=== PATIENT | female | born 1980 | race African-American/Black ===

== ENCOUNTER 2016-10-10 04:29 | Inpatient (IN) ==
[2016-10-10] MEDS ORDERED: hydrALAZINE 20 MG/1 ML VIAL ONE (04:44)
[2016-10-10] MEDS ORDERED: NITROGLYCERIN SL 0.4 MG TABLET SL STA (04:52)
[2016-10-10] MEDS ORDERED: hydrALAZINE 20 MG/1 ML VIAL IV STA ×2 (04:52→05:36)
[2016-10-10 04:58] LABS: Basophils % 0.4 % (0.0-0.8); Eosinophils # 0.2 10*3/uL (0.0-0.87); Hematocrit 28.4 VOL% (35.7-47.0); Hemoglobin 8.7 GM/DL (12.0-16.0); Immature Granulocytes % 0.4 %; Immature Granulocytes Absolute 0.03 #; Lymphocytes # 2.3 10*3/uL (1.4-4.0); Lymphocytes % 29.7 % (21.3-54.2); Mean Corpuscular HGB Conc 30.6 GM/DL (32-36); Mean Corpuscular Hemoglobin 23 PG (27-34); Mean Corpuscular Volume 74.9 FL (87-102); Monocytes # 0.7 10*3/uL (0.11-0.8); Monocytes % 8.9 % (1.7-12.7); Neutrophils # 4.5 10*3/uL (1.4-7.4); Neutrophils % 58.6 % (38.7-73.9); Platelet Count 319 10*3/uL (130-400); Red Blood Count 3.79 10*6/uL (3.8-5.5); Red Cell Distribution Width 17.2 % (9.3-17.3); White Blood Count 7.6 10*3/uL (4.5-13.71)
[2016-10-10] MEDS ORDERED: ONDANSETRON 4 MG/2 ML VIAL ONE (05:06)
[2016-10-10] MEDS ORDERED: MORPHINE 2 MG/1 ML SYRINGE ONE (05:07)
[2016-10-10] MEDS ORDERED: NITROGLYCERIN SL 0.4 MG TABLET SL ONE (05:07)
[2016-10-10 05:10] LABS: PT Patient Result 11.1 SECS; Partial Thromboplastin Time 27.8 SECS (0-40)
[2016-10-10] MEDS ORDERED: ONDANSETRON 4 MG/2 ML VIAL IV STA (05:15)
[2016-10-10] MEDS ORDERED: MORPHINE 2 MG/1 ML SYRINGE IV STA (05:15)
[2016-10-10 05:21] LABS: Albumin 3.1 G/DL (3.4-5.0); Bilirubin,Total 0.4 MG/DL (0.2-1.0); Calcium 8.4 MG/DL (8.5-10.1); Potassium 3.6 MMOL/L (3.5-5.1); Total Protein 6.1 G/DL (6.4-8.3)
--- NOTE | 2016-10-10 05:36 | Emergency Department Note ---
ITyrell Brooke, am scribing for, and in the presence of, Amanda Horn DO 04:56 . IKory Debra, DO, personally performed the services described in this documentation, ascribed by Mari Santillan in my presence, and it is both accurate and complete . Arrival - Arrival ED Nursing Triage Note: REPORTS CHEST PAIN AND SOB ON EXERTION INTERMITTENT FOR APPROX. 3 MONTHS BUT WORSE THIS MORNING. Mode of Arrival: Ambulatory Limitations: No Limitations Source: Patient, RN Notes Reviewed - History of Present Illness Onset (ago): month(s) (3) Date of Last Menstrual Period: 10/03/16 <Amanda Horn - Last Filed: 10/10/16 05:36> <Gio Powers - Last Filed: 10/10/16 07:06> - Arrival Chief Complaint: Chest Pain Stated Complaint: chest pain, tightness in chest, SOB Time Seen by Provider: 10/10/16 04:43 - History of Present Illness HPI Narrative: Patient is a 35 year old female who presents to the ED with c/o chest pain and SOB. Patient says her chest is tender to touch. She says she has been having problems with the SOB since June. She says she saw a doctor in [place] and was told she had some fluid on her lungs. She stayed over night and says her blood pressure was elevated, so they got that regulated and then discharged her. Patient says she was prescribed some blood pressure medications. Patient's blood pressure upon exam was 232/162. Patient says she ran out of her blood pressure medication two weeks ago. She says she has had a CVA, in the past, but says it was mild and did not have any weakness afterwards. Patient has no heart problems, that she knows of. Patient says she developed preeclampsia, in March, and had to deliver her child early. She denies having any abdominal pain or headache. Patient has PMHx of HTN, depression, CVA, obstructive sleep apnea, hemmorrhoids, and GERD. (Mari Santillan) Patient is a 35 year old female who presents to the ED with c/o chest pain and SOB. Patient says her chest is tender to touch. She says she has been having problems with the SOB since June. She says she saw a doctor in [place] and was told she had some fluid on her lungs. She stayed over night and says her blood pressure was elevated, so they got that regulated and then discharged her. Patient says she was prescribed some blood pressure medications. Patient's blood pressure upon exam was 232/162. Patient says she ran out of her blood pressure medication two weeks ago. She says she has had a CVA, in the past, but says it was mild and did not have any weakness afterwards. Patient has no heart problems, that she knows of. Patient says she developed preeclampsia, in March, and had to deliver her child early. She denies having any abdominal pain or headache. Patient has PMHx of HTN, depression, CVA, obstructive sleep apnea, hemmorrhoids, and GERD. (Amanda Horn) Allergies/Adverse Reactions: Allergies Allergy/AdvReac Type Severity Reaction Status Date / Time No Known Allergies Allergy Unverified 01/04/15 20:18 Home Medications: Home Medications Medication Instructions Recorded Confirmed Type Carvedilol [Coreg] 12.5 mg PO BID #60 tablet 01/10/15 Rx Ondansetron Tab [Zofran Tab] 4 mg PO Q6H PRN #20 tablet 01/10/15 Rx Pantoprazole Tab [Protonix Tab] 40 mg PO DAILY #30 tablet 01/10/15 Rx amLODIPine [Norvasc] 10 mg PO DAILY #30 tablet 01/10/15 Rx cloNIDine TAB [Catapres Tab] 0.1 mg PO TID #100 tablet 01/10/15 Rx hydrALAZINE TAB [Apresoline Tab] 50 mg PO BID #60 tablet 01/10/15 Rx Review of System - Review of System 12 point system: reviewed and no additional remarkable complaints except as stated - Review of System Constitutional: Absent: fever Respiratory: Present: other (SOB). Absent: respiratory distress Cardiovascular: Present: chest pain, other (elevated blood pressure) Gastrointestinal: Absent: abdominal pain Skin: Absent: rash Neurological: Absent: headache <Amanda Horn - Last Filed: 10/10/16 05:36> Medical,Surgical,& Family Hx - Medical History Cardio: History of: Hypertension Psychological: History of: Depression Neurology: History of: Cerebrovascular Accident No history of: Brain Aneurysm, Cerebral Hemorrhage, Cerebral Palsy, Dementia , Migraine, Multiple Sclerosis, Parkinson's Disease, Peripheral Neuropathy, Seizures, TIA, Vertigo, Neurologocal Cancer Respiratory: History of: Obstructive Sleep Apnea ("My mother says I need a sleep study done.") Genitourinary: History of: Problems (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 for which she has had no follow-up) Gastrointestinal: History of: GERD, Hemorrhoids Musculoskeletal: No history of: Amputation Reproductive: History of: Endometriosis, Ectopic (2000) - Surgical History Cardiac Surgeries: Patient Denies: Cardiac Catheterization Thoracic Surgeries: Patient denies;: Lobectomy Neurologic Surgeries: Patient denies: Brain Aneurysm, Cerebral Hemorrhage, Neurologic Surgery HEENT Surgeries: Patient denies: Tonsilectomy & Adenoidectomy Abdominal Surgeries: Patient denies: Abdominal Surgery Reproductive Surgeries: Surgical HX of;: Gynecologic Surgery Comment Only: Tubal Ligation (2000 had one fallopian tube removed after ectopic ) - Family History Family History: Reports;: Family Cancer (aunt, greataunt), Family Diabetes ( mother, grandmother, aunt, uncle), Family Hypertension ("everyone in my family") Denies;: Family Anesthesia Reaction - Social History Smoking Status: Current every day smoker Frequency of Alcohol Use: None Type of Drug Use: None <Amanda Horn - Last Filed: 10/10/16 05:36> Exam - General General appearance: alert, in no apparent distress - Head Head exam: Present: atraumatic, normocephalic - Eye Eye exam: Present: normal appearance, PERRL, EOMI - ENT ENT exam: Present: normal exam - Neck Neck exam: Present: normal inspection - Chest Chest inspection: Present: normal inspection, symmetric chest wall rise - Respiratory Respiratory exam: Present: normal lung sounds bilaterally - Cardiovascular Cardiovascular exam: Present: regular rate, normal rhythm, normal heart sounds - Abdominal Exam Abdominal exam: Present: soft, tenderness (epigastric to palpation). Absent: distention - Extremities Exam Extremities exam: Present: normal inspection - Back Exam Back exam: Present: normal inspection - Neurological Exam Neurological exam: Present: alert, oriented X3 - Psychiatric Psychiatric exam: Present: normal affect, normal mood - Skin Skin exam: Present: warm, dry, intact, normal color <Amanda Horn - Last Filed: 10/10/16 05:36> Vital Signs: Vital Signs Temperature 98.9 F 10/10/16 04:33 Pulse Rate 97 H 01/15/17 04:33 Respiratory Rate 19 10/10/16 04:59 Blood Pressure 228/151 10/10/16 04:33 O2 Sat by Pulse Oximetry 97 10/10/16 04:33 (Mari Santillan) (Amanda Horn) (Gio Powers) Course <Amanda Horn - Last Filed: 10/10/16 05:36> - Consultations Time: 07:06 <Gio Powers - Last Filed: 10/10/16 07:06> - Consultations Consultation #1: Dr. Fortino Mcgraw will evaluate and admit the patient. (Gio Powers) Results - Labs CBC & BMP: 10/10/16 04:47 Lab Results: I have reviewed the patients labs <Amanda Horn - Last Filed: 10/10/16 05:36> - Labs CBC & BMP: 10/10/16 04:47 10/10/16 04:47 Lab Results: I have reviewed the patients labs - EKG EKG results: interpreted by BRONWYN CHONG, sinus rhythm <Gio Powers - Last Filed: 10/10/16 07:06> - Labs Labs: Laboratory Tests 10/10/16 04:47 RBC 3.79 L Hgb 8.7 L Hct 28.4 L MCV 74.9 L MCH 23 L MCHC 30.6 L (Mari Santillan) Laboratory Tests 10/10/16 04:47 RBC 3.79 L Hgb 8.7 L Hct 28.4 L MCV 74.9 L MCH 23 L MCHC 30.6 L (Amanda Horn) Lab Results WBC 7.6 10*3/uL (4.5-13.71) 10/10/16 04:47 RBC 3.79 10*6/uL (3.8-5.5) L 10/10/16 04:47 Hgb 8.7 GM/DL (12.0-16.0) L 10/10/16 04:47 Hct 28.4 VOL% (35.7-47.0) L 10/10/16 04:47 MCV 74.9 FL (87-102) L 10/10/16 04:47 MCH 23 PG (27-34) L 10/10/16 04:47 MCHC 30.6 GM/DL (32-36) L 10/10/16 04:47 RDW 17.2 % (9.3-17.3) 10/10/16 04:47 Plt Count 319 10*3/uL (130-400) 10/10/16 04:47 MPV 10.0 FL (9.6-12.0) 10/10/16 04:47 Neut % (Auto) 58.6 % (38.7-73.9) 10/10/16 04:47 Lymph % (Auto) 29.7 % (21.3-54.2) 10/10/16 04:47 Cook % (Auto) 8.9 % (1.7-12.7) 10/10/16 04:47 Eos % (Auto) 2.0 % (0.00-10.9) 10/10/16 04:47 Baso % (Auto) 0.4 % (0.0-0.8) 10/10/16 04:47 Neut # (Auto) 4.5 10*3/uL (1.4-7.4) 10/10/16 04:47 Lymph # (Auto) 2.3 10*3/uL (1.4-4.0) 10/10/16 04:47 Cook # (Auto) 0.7 10*3/uL (0.11-0.8) 10/10/16 04:47 Eos # (Auto) 0.2 10*3/uL (0.0-0.87) 10/10/16 04:47 Baso # (Auto) 0.0 10*3/uL (0.0-0.2) 10/10/16 04:47 Immature Gran % 0.4 % 10/10/16 04:47 Nucleated RBC % 0.0 /100WBC 10/10/16 04:47 Immature Gran # 0.03 # 10/10/16 04:47 Nucleated RBCs # 0.00 10*3/uL 10/10/16 04:47 INR 1.0 10/10/16 04:47 PT Patient/Control Mix 11.1 SECS 10/10/16 04:47 Circ Anticoag PTT 27.8 SECS (0-40) 10/10/16 04:47 Sodium 143 MMOL/L (136-145) 10/10/16 04:47 Potassium 3.6 MMOL/L (3.5-5.1) 10/10/16 04:47 Chloride 108 MMOL/L (98-107) H 10/10/16 04:47 Carbon Dioxide 26 MMOL/L (21-32) 10/10/16 04:47 Anion Gap 12.6 MMOL/L (5.0-15.0) 10/10/16 04:47 BUN 17 MG/DL (7-18) 10/10/16 04:47 Creatinine 1.40 MG/DL (0.55-1.02) H 10/10/16 04:47 GFR Calculation 51 ML/MIN 10/10/16 04:47 BUN/Creatinine Ratio 12.00 RATIO (6.00-20.00) 10/10/16 04:47 Glucose 92 MG/DL (74-106) 10/10/16 04:47 Calculated Osmolality 286.0 MOS/KG (273-304) 10/10/16 04:47 Calcium 8.4 MG/DL (8.5-10.1) L 10/10/16 04:47 Total Bilirubin 0.40 MG/DL (0.2-1.0) 10/10/16 04:47 AST 26 U/L (0-37) 10/10/16 04:47 ALT 27 U/L (13-56) 10/10/16 04:47 Alkaline Phosphatase 95 U/L (45-117) 10/10/16 04:47 Total Creatine Kinase 192 U/L (26-192) 10/10/16 04:47 CK-MB (CK-2) 2.6 U/L (0.5-3.6) 10/10/16 04:47 Troponin I 0.031 NG/ML (0.00-0.045) 10/10/16 04:47 B-Natriuretic Peptide 2249 PG/ML (2-100) H 10/10/16 04:47 Total Protein 6.1 G/DL (6.4-8.3) L 10/10/16 04:47 Albumin 3.1 G/DL (3.4-5.0) L 10/10/16 04:47 Globulin 3.0 G/DL (2.3-3.5) 10/10/16 04:47 Albumin/Globulin Ratio 1.0 RATIO (1.1-2.2) L 10/10/16 04:47 Urine Color Straw (Yellow) 10/10/16 04:47 Urine Appearance Clear (Clear) 10/10/16 04:47 Urine pH 7.0 (4.5-8.0) 10/10/16 04:47 Ur Specific [place] 1.008 (1.001-1.035) 10/10/16 04:47 Urine Protein 30 MG/DL 10/10/16 04:47 Urine Glucose (UA) Negative mg/dL (Negative) 10/10/16 04:47 Urine Ketones Negative mg/dL (Negative) 10/10/16 04:47 Urine Blood Negative mg/dL (Negative) 10/10/16 04:47 Urine Nitrate Negative (Negative) 10/10/16 04:47 Urine Bilirubin Negative mg/dL (Negative) 10/10/16 04:47 Urine Urobilinogen < 2.0 EU/DL (0.2-1.0) H 10/10/16 04:47 Urine Leukocytes Trace Mehreen/ul (Negative) 10/10/16 04:47 Urine RBC 1 /HPF (0-4) 10/10/16 04:47 Urine WBC 2 /HPF (0-6) 10/10/16 04:47 Ur Squamous Epith Cells Occasional /HPF (0-10) 10/10/16 04:47 Urine Bacteria Occasional /HPF (Few) 10/10/16 04:47 Ur Culture Indicated? Not indicated 10/10/16 04:47 Urine Opiates Screen Positive (Negative) H 10/10/16 04:47 Ur Barbiturates Screen Negative (Negative) 10/10/16 04:47 Ur Phencyclidine Scrn Negative (Negative) 10/10/16 04:47 U Amphetamine/Methamph Negative (Negative) 10/10/16 04:47 U Benzodiazepines Scrn Negative (Negative) 10/10/16 04:47 U Cocaine Metab Screen Negative (Negative) 10/10/16 04:47 U Cannabinoids Screen Positive (Negative) H 10/10/16 04:47 (Gio Powers) Disposition <Amanda Horn - Last Filed: 10/10/16 05:36> Case discussed with: patient Time of Disposition: 07:06 <Gio Powers - Last Filed: 01/15/17 07:06> Clinical Impression: Uncontrolled hypertension, Renal insufficiency, Shortness of breath Disposition: Still a Patient Condition: Stable
[2016-10-10] MEDS ORDERED: cloNIDine 0.1 MG TABLET ONE ×2 (05:41→05:42)
[2016-10-10] MEDS: cloNIDine 0.1 MG TABLET PO STA ×2 (05:42→05:52)
[2016-10-10] MEDS ORDERED: LABETALOL 20 MG/4 ML SYRINGE IV ONE (05:46)
[2016-10-10] MEDS ORDERED: ASPIRIN 325 MG TABLET PO STA (05:49)
[2016-10-10] MEDS ORDERED: LABETALOL 20 MG/4 ML SYRINGE IV STA ×2 (05:49→07:03)
[2016-10-10] MEDS ORDERED: ASPIRIN 325 MG TABLET ONE (05:55)
[2016-10-10 06:14] LABS: Troponin I Only 0.031 NG/ML (0.00-0.045)
[2016-10-10 06:27] LABS: Apearance,Urine CLEAR (Clear); Bacteria,Urine Occasional /HPF (Few); Bilirubin,Urine Negative (Negative); Blood, Urine Negative (Negative); Glucose,Urine (UA) Negative (Negative); Ketones,Urine Negative (Negative); Nitrite,Urine Negative (Negative); Protein,Urine 30 MG/DL; RBC,Urine 1 /HPF (0-4); Squamous Epithelial Cell,Urine Occasional /HPF (0-10); Urine Color Straw (Yellow); Urine Specific Gravity 1.008 (1.001-1.035); Urine Urobilinogen < 2.0 EU/DL (0.2-1.0); WBC,Urine 2 /HPF (0-6)
[2016-10-10 06:35] LABS: Barbiturates Screen,Urine Negative (Negative); Benzodiazepines Screen,Urine Negative (Negative); Cannabinoid Screen,Urine Positive (Negative); Opiate Screen,Urine Positive (Negative); Phencyclidine Screen,Urine Negative (Negative)
--- NOTE | 2016-10-10 06:56 | EKG Report ---
Stationary ECG Study [facility] ER Test Date: 10/10/2016 4:41:23 AM Pat Name: MARIAELENA HOLT Department: Room: Gender: F Passenger Relations Representative: Tayo : 1980 Requested by: Amanda Horn Order Number: [id number] Reading MD: AUDRA GASTELUM Intervals [place] Rate: 91 P: 60 WA: 166 QRS: 40 QRSD: 74 T: 81 QT: 371 QTc: 420 Interpretive Statements SINUS RHYTHM LEFT ATRIAL ENLARGEMENT SEPTAL INFARCT, PROBABLY OLD Electronically Signed On 10-10-16 17:50:03 [employer] by AUDRA GASTELUM [email or web address]
[2016-10-10] MEDS ORDERED: ACETAMINOPHEN 325 MG TABLET PO PRN (07:30)
[2016-10-10] MEDS ORDERED: niCARdipine INJ 25 MG in SODIUM CHLORIDE 0.9% 240 ML IV SCH ×2 (07:30→08:00)
[2016-10-10] MEDS ORDERED: BISACODYL 5 MG TABLET PO PRN (07:30)
[2016-10-10] MEDS ORDERED: hydrALAZINE 20 MG/1 ML VIAL IV PRN (07:30)
[2016-10-10] MEDS ORDERED: ZALEPLON 5 MG CAPSULE PO PRN (07:30)
[2016-10-10] MEDS ORDERED: DOCUSATE SODIUM 100 MG CAPSULE PO PRN (07:30)
[2016-10-10] MEDS ORDERED: ONDANSETRON 4 MG/2 ML VIAL IV PRN (07:30)
[2016-10-10] MEDS ORDERED: MORPHINE 2 MG/1 ML SYRINGE IV PRN (07:30)
[2016-10-10] MEDS ORDERED: niCARdipine 25 MG/10 ML VIAL IV ONE (07:34)
--- NOTE | 2016-10-10 08:07 | CT Report ---
History is severe hypertension The ventricles are normal in size. No acute intracranial hemorrhage, mass effect, or evidence of acute cortical stroke seen. Impression: No acute intracranial pathology seen. PROCEDURE INTERPRETED AT [facility] DEPARTMENT OF RADIOLOGY Final Report Signed by: Dr. Kaitlyn Osorio
--- NOTE | 2016-10-10 08:34 | Hospitalist History & Physical ---
Assessment and Plan - Time spent with patient Time spent with patient: Greater than 30 minutes (1) Malignant hypertension Status: Acute Assessment and plan: Admit to inpatient to ICU. Start Cardene drip. Resume home medications. Follow-up echocardiogram. Consider cardiology/nephrology consultation. Current Visit: No (2) Renal insufficiency Status: Acute Current Visit: Yes History of Present Illness Chief complaint: Shortness of breath, elevated BP History of present illness: Ms. Cook is a 35 year old female with a history of hypertension that presented to the emergency department early this morning with complaints of worsening shortness of breath. The patient was seen and examined in the emergency department room 5 with her significant other at the bedside. They report that she has been progressively more and more short of breath since June. Most recently she ran out of her hydrochlorothiazide and nifedipine. She has had hypertension for approximately 2 years. She reports extensive workup including 2-D echo of the heart and 24-hour urine collection. She is supposed to follow-up with Dr. Pollard next month for management of her hypertension. Most recently she had a delivery in March and was hospitalized [facility] in [place]. She reports that over the last week her shortness of breath has progressed and become even worse. She has conversational dyspnea and orthopnea with paroxysmal nocturnal dyspnea. She was seen and evaluated by the emergency room physician. Her blood pressure was noted to be greater than 200 systolic and greater than 130 diastolic. She has been referred to the hospitalist program for inpatient hospitalization and treatment of her hypertension. Of note she did not respond to labetalol, clonidine or hydralazine in the emergency department. She has now been started on Cardene drip and is awaiting an ICU bed. She denies any chest pain at this time but reports feeling a rattle in her chest when she takes in a deep breath as well as having a dry cough. No sick contacts. No fever or chills. No recent hospitalizations or antibiotics. Home Medications Medication Instructions Recorded Confirmed Type Carvedilol [Coreg] 12.5 mg PO BID #60 tablet 01/10/15 Rx Ondansetron Tab [Zofran Tab] 4 mg PO Q6H PRN #20 tablet 01/10/15 Rx Pantoprazole Tab [Protonix Tab] 40 mg PO DAILY #30 tablet 01/10/15 Rx amLODIPine [Norvasc] 10 mg PO DAILY #30 tablet 01/10/15 Rx cloNIDine TAB [Catapres Tab] 0.1 mg PO TID #100 tablet 01/10/15 Rx hydrALAZINE TAB [Apresoline Tab] 50 mg PO BID #60 tablet 01/10/15 Rx Allergies Allergy/AdvReac Type Severity Reaction Status Date / Time No Known Allergies Allergy Unverified 01/04/15 20:18 Medical,Surgical,& Family Hx - Medical History Cardio: History of: Hypertension Psychological: History of: Depression Neurology: History of: Cerebrovascular Accident No history of: Brain Aneurysm, Cerebral Hemorrhage, Cerebral Palsy, Dementia , Migraine, Multiple Sclerosis, Parkinson's Disease, Peripheral Neuropathy, Seizures, TIA, Vertigo, Neurologocal Cancer Respiratory: History of: Obstructive Sleep Apnea ("My mother says I need a sleep study done.") Genitourinary: History of: Problems (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 for which she has had no follow-up) Gastrointestinal: History of: GERD, Hemorrhoids Musculoskeletal: No history of: Amputation Reproductive: History of: Endometriosis, Ectopic (2000) - Surgical History Cardiac Surgeries: Patient Denies: Cardiac Catheterization Thoracic Surgeries: Patient denies;: Lobectomy Neurologic Surgeries: Patient denies: Brain Aneurysm, Cerebral Hemorrhage, Neurologic Surgery HEENT Surgeries: Patient denies: Tonsilectomy & Adenoidectomy Abdominal Surgeries: Patient denies: Abdominal Surgery Reproductive Surgeries: Surgical HX of;: Gynecologic Surgery Comment Only: Tubal Ligation (2000 had one fallopian tube removed after ectopic ) - Family History Family History: Reports;: Family Cancer (aunt, greataunt), Family Diabetes ( mother, grandmother, aunt, uncle), Family Hypertension ("everyone in my family") Denies;: Family Anesthesia Reaction - Social History Smoking Status: Current every day smoker Have you smoked in the last 12 months: Yes Time spent discussing smoking cessation with patient: more than 10 minutes Frequency of Alcohol Use: None Type of Drug Use: None Marital Status: Life Partner Lives With:: Significant Other Functional capacity: independent ambulation 12 point system: reviewed and no additional remarkable complaints except as stated - Constitutional Constitutional: Present: as per HPI - Cardiovascular Cardiovascular: Present: as per HPI, dyspnea, dyspnea on exertion, orthopnea, PND - Respiratory Respiratory: Present: as per HPI, cough, dyspnea, dyspnea on exertion Exam - Constitutional Vitals: Period Temp Pulse Resp BP Sys/Doshi Pulse Ox Last 24 Hr 83-93 16-18 173-178/108-112 100-100 General appearance: mild distress - Head Head exam: Present: normal inspection, normocephalic, atraumatic - Eye Eye exam: Present: EOMI Pupils: Present: BLANCA - ENT ENT exam: Present: normal exam - Neck Neck exam: Present: normal inspection. Absent: lymphadenopathy - Respiratory Respiratory exam: Present: rales - Cardiovascular Cardiovascular exam: Present: regular rate and rhythm, systolic murmur - GI/Abdominal GI/Abdominal exam: Present: normal bowel sounds, soft. Absent: tenderness, rebound - Extremities Exam Extremities exam: Present: normal inspection, full ROM. Absent: calf tenderness , edema - Back Exam Back exam: Present: normal inspection - Neurological Exam Neurological exam: Present: alert, oriented X3 - Psychiatric Psychiatric exam: Present: normal affect, normal mood - Skin Skin exam: Present: normal color, warm, dry Results - Labs CBC & BMP: 10/10/16 04:47 10/10/16 04:47 Lab Results: I have reviewed the past 24 hour labs
--- NOTE | 2016-10-10 08:35 | XRay Report ---
History is short of breath Comparison 01/05/2015 The cardiac silhouette is mildly enlarged accentuated by technique There are mild/moderate diffuse bilateral interstitial and hazy pulmonary opacities. Left base is underpenetrated with overlying soft tissues. No definite consolidation is seen. Impression: Mild prominence of the cardiac silhouette with diffuse bilateral infiltrates versus edema PROCEDURE INTERPRETED AT [facility] DEPARTMENT OF RADIOLOGY Final Report Signed by: Dr. Kaitlyn Osorio
[2016-10-10] MEDS: ENOXAPARIN 40 MG/0.4 ML SYRINGE SUBCUT SCH (09:28)
[2016-10-10] MEDS: CARVEDILOL 12.5 MG TABLET PO SCH ×2 (09:29→21:02)
[2016-10-10] MEDS: PANTOPRAZOLE 40 MG TABLET PO SCH (09:29)
[2016-10-10] MEDS: amLODIPine 5 MG TABLET PO SCH (09:29)
[2016-10-10] MEDS: cloNIDine 0.1 MG TABLET PO SCH ×3 (09:37→21:02)
[2016-10-10 10:14] LABS: Troponin I Only 0.027 NG/ML (0.00-0.045)
--- NOTE | 2016-10-10 14:53 | ECHO Report ---
Jacqueline Cook Exam Date: 10/10/2016 09:10 Referring Physician: Technologist: Evon Gomez RDCS Age: 35 Ht (in): Wt (lb): Gender: F Exam Location: [facility] Echo Indications: Chest pain, unspecified, Shortness of breath, Orthopnea, Essential (primary) hypertension, Nicotine dependence, unspecified, uncomplicated BP: / HR: Rhythm: Sinus Technical Quality: IMPRESSIONS Normal left ventricle size, with severe concentric hypertrophy. There is no outflow tract obstruction. Estimated left ventricular ejection fraction 70%. Grade 3-4 diastolic dysfunction. Mild right atrial enlargement. Moderate left atrial enlargement. Mild, eccentric mitral regurgitation. Moderate tricuspid regurgitation, with severe pulmonary hypertension. Mild pulmonic valve insufficiency. Trace pericardial effusion. MEASUREMENTS (Male / Female) Normal Values 2D ECHO LV Diastolic Diameter PLAX 4.1 cm 4.2 - 5.9 / 3.9 - 5.3 cm LV Systolic Diameter PLAX 2.0 cm LV Fractional Shortening PLAX 50.4 % IVS Diastolic Thickness 2.2 cm 0.6 - 1.0 / 0.6 - 0.9 cm LVPW Diastolic Thickness 1.9 cm 0.6 - 1.0 / 0.6 - 0.9 cm RV Internal Dim ED PLAX 2.1 cm Aortic Root Diameter 3.1 cm LA Systolic Diameter LX 3.8 cm 3.0 - 4.0 / 2.7 - 3.8 cm DOPPLER TR Peak Velocity 419.0 cm/s TR Peak Gradient 70.2 mmHg FINDINGS Left Ventricle Normal left ventricle size, with severe concentric hypertrophy. There is no outflow tract obstruction. Estimated left ventricular ejection fraction 70%. Grade 3-4 diastolic dysfunction. Right Ventricle The right ventricle is normal in size and function. Right Atrium The right atrium is mildly enlarged. Left Atrium The left atrium is moderately enlarged. Mitral Valve Structurally normal mitral valve. There is no systolic anterior motion. Mild, eccentric mitral regurgitation. Aortic Valve Morphologically normal aortic valve without significant sclerosis or stenosis. There is no aortic regurgitation. Tricuspid Valve Morphologically normal tricuspid valve. Moderate tricuspid valve regurgitation. Tricuspid regurgitation velocities suggest a PAP of 70 mmHg + Ra pressure. Pulmonic Valve Morphologically normal pulmonic valve. Mild pulmonary valve regurgitation. Pericardium Trace pericardial effusion. Aorta Normal ascending aorta dimension. Burt James (Electronically Signed) Final Date: 10 October 2016 14:52
[2016-10-10 15:25] LABS: Troponin I Only 0.057 NG/ML (0.00-0.045)
[2016-10-11 06:28] LABS: Albumin 2.7 G/DL (3.4-5.0); Bilirubin,Total 0.7 MG/DL (0.2-1.0); Calcium 8.2 MG/DL (8.5-10.1); Osmolality,Calculated 287.8 MOS/KG (273-304); Potassium 3.5 MMOL/L (3.5-5.1); Risk Ratio 3.45; Thyroid Stimulating Hormone 0.811 uIU/ml (0.358-3.74); Total Protein 5.4 G/DL (6.4-8.3); VLDL CHOLESTEROL 18.8 MG/DL
[2016-10-11 08:12] VITALS: BP 173/96
[2016-10-11] MEDS: CARVEDILOL 12.5 MG TABLET PO SCH (08:37)
[2016-10-11] MEDS: PANTOPRAZOLE 40 MG TABLET PO SCH (08:37)
[2016-10-11] MEDS: cloNIDine 0.1 MG TABLET PO SCH (08:37)
[2016-10-11] MEDS: amLODIPine 5 MG TABLET PO SCH (08:37)
[2016-10-11] MEDS: ENOXAPARIN 40 MG/0.4 ML SYRINGE SUBCUT SCH (08:41)
--- NOTE | 2016-10-11 09:43 | Discharge Summary ---
<Niecy Thorne - Last Filed: 10/11/16 09:32> Hospital Course - Hospital Course Hospital Course: Ms. Cook was admitted yesterday with Malignant Hypertension. She was admitted to ICU for a cardene drip. She was restarted on her home medications, and an echo was obtained. Upon speaking with Ms. Cook today, she is not short of breath. ECHO performed showed EF 70% with severe concentric hypertrophy. CXR showed "mild prominence of the cardiac silhouette with diffuse bilateral infiltrates vs edema". CT head was also performed and was negative for acute pathology. Her BP on admit was 193/137. Her BP today is down to 173/ 96 at last check, with a reading of 140/75 at midnight. 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 She states that she has been having difficulty paying for her medications, especially since the premature of her son. She states that she is trying to get her Medicaid reinstated, and is going to have to look for another job. I will speak to social human services assistants about any financial assistance programs for her medications. It appears that 3 of the 4 of her BP medications are now on the $4 list at [facility]. She will be discharged home today on appropriate medications and follow up. - Time spent with patient Time with patient DS: Greater than 30 minutes (due to plan, doc and med rec.) Diagnosis - Discharge Diagnosis (1) Malignant hypertension Status: Acute (2) Severe concentric left ventricular hypertrophy Status: Acute Discharge Plan - Discharge Data Disposition: Disch To Home/Self Care - Discharge Medications New Carvedilol [Coreg] 12.5 mg PO BID #60 tablet amLODIPine [Norvasc] 10 mg PO DAILY #30 tablet cloNIDine TAB [Catapres Tab] 0.1 mg PO TID #90 tablet hydrALAZINE TAB [Apresoline Tab] 50 mg PO BID #60 tablet Discontinued hydrALAZINE TAB [Apresoline Tab] 50 mg PO BID #60 tablet cloNIDine TAB [Catapres Tab] 0.1 mg PO TID #100 tablet Carvedilol [Coreg] 12.5 mg PO BID #60 tablet amLODIPine [Norvasc] 10 mg PO DAILY #30 tablet Pantoprazole Tab [Protonix Tab] 40 mg PO DAILY #30 tablet Ondansetron Tab [Zofran Tab] 4 mg PO Q6H PRN #20 tablet PRN Reason: Nausea - Follow Up or Referral Follow Up: Bharat Pollard Jr., MD [Physician] - - Forms/Instructions Exam - Constitutional Vitals: Period Temp Pulse Resp BP Sys/Doshi Pulse Ox Last 24 Hr 97.4 F-98.8 F 73-92 14-22 125-179/75-103 93-100 Discharge Results Procedures and tests throughout hospitalization: Pending Orders 10/10/16 08:35 MRSA Surveillence, Inf Control Routine Labs on day of discharge: Labs from last 24 hours 10/11/16 10/11/16 10/11/16 05:18 05:18 05:18 Sodium 144 Potassium 3.5 Chloride 109 H Carbon Dioxide 25 Anion Gap 13.5 BUN 14 Creatinine 1.50 H GFR Calculation 48 BUN/Creatinine Ratio 9.00 Glucose 120 H Calculated Osmolality 287.8 Calcium 8.2 L Magnesium 2.0 Total Bilirubin 0.70 AST 13 ALT 21 Alkaline Phosphatase 79 Total Creatine Kinase CK-MB (CK-2) Troponin I B-Natriuretic Peptide 1071 H Total Protein 5.4 L Albumin 2.7 L Globulin 2.7 Albumin/Globulin Ratio 1.0 L Triglycerides 94 Cholesterol 131 LDL Cholesterol 80.0 VLDL Cholesterol 18.8 HDL Cholesterol 38 L Heart Disease Risk Ratio 3.45 Free T4 1.09 TSH 3rd Generation 0.811 10/10/16 10/10/16 10/10/16 20:50 14:44 08:55 Sodium Potassium Chloride Carbon Dioxide Anion Gap BUN Creatinine GFR Calculation BUN/Creatinine Ratio Glucose Calculated Osmolality Calcium Magnesium Total Bilirubin AST ALT Alkaline Phosphatase Total Creatine Kinase 129 146 D 198 H CK-MB (CK-2) 1.7 2.2 2.5 Troponin I 0.070 H D 0.057 H D 0.027 B-Natriuretic Peptide Total Protein Albumin Globulin Albumin/Globulin Ratio Triglycerides Cholesterol LDL Cholesterol VLDL Cholesterol HDL Cholesterol Heart Disease Risk Ratio Free T4 TSH 3rd Generation Preliminary micro results at discharge 10/10/16 08:35 MRSA Surveillance Culture - Preliminary Nares - Left No MRSA isolated. DS: Provider Date of admission: 10/10/16 07:30 Primary care physician: . No PCP Attending physician on admission: Willi Manriquez MD Consults: 10/10/16 07:45 Consult to Pharmacy [CONS] Routine Reason for Pharmacy Consult: Adjust Meds Renal Funct 10/11/16 09:00 Consult to Case Mgmt/Social Srvs [CONS] Routine Reason for Case Mgmt/Social Srvs: Other Consult Comment: pt req assistance with her Medicaid/medicines Discharging clinician: Niecy Thorne NP Expected date of discharge: 10/11/16 <Willi Manriquez - Last Filed: 10/11/16 10:00> Hospital Course - Hospital Course Hospital Course: Patient seen and examined. Chart reviewed. I have reviewed the content of this discharge summary with the nurse practitioner and agree with the documentation as listed below. Patient was admitted by me to the intensive care unit yesterday with uncontrolled malignant hypertension. She was started on Cardene drip which is now been weaned off. She's been restarted on her home medications including Coreg, Norvasc, clonidine, hydralazine. This has controlled her blood pressure nicely. She is asymptomatic. She is ready for discharge home. Tammy has an appointment to follow-up with Dr. Bharat Marshall for sometime in October. She is encouraged to keep that appointment. Had a lengthy conversation with the patient at the bedside regarding her diagnosis and treatment plan as well as her echocardiogram results. She understands the importance of maintaining a normal blood pressure and keeping regular scheduled follow-up appointments as well as taking her medications as prescribed. Total discharge time for this patient including [id number] time, medication reconciliation and discharge planning were 43 minutes. - Time spent with patient Time with patient DS: Greater than 30 minutes Diagnosis - Discharge Diagnosis (1) Malignant hypertension Status: Acute (2) Renal insufficiency Status: Acute Discharge Plan - Discharge Data Condition at Discharge: Stable Discharge Diet: advance to your usual diet Activity: resume usual activities as tolerated - Forms/Instructions Additional Discharge Instructions: prescription given for home o2 as needed. Exam - Constitutional General appearance: no acute distress - Head Head exam: Present: normal inspection, normocephalic, atraumatic - Eye Eye exam: Present: EOMI Pupils: Present: BLANCA - Respiratory Respiratory exam: Present: clear to auscultation bilaterally - Cardiovascular Cardiovascular exam: Present: regular rate and rhythm - GI/Abdominal GI/Abdominal exam: Present: normal bowel sounds, soft. Absent: tenderness, rebound - Extremities Exam Extremities exam: Present: edema - Neurological Exam Neurological exam: Present: alert, oriented X3 - Psychiatric Psychiatric exam: Present: normal affect, normal mood - Skin Skin exam: Present: normal color, warm, dry Discharge Results - Imaging and Cardiology Procedure: Chest x-ray: report reviewed by me
--- NOTE | 2016-10-12 10:50 | Physician Query Form ---
CLICK EDIT DOCUMENT TO SELECT QUERY ANSWER --> OK --> SIGN Jenni France RN, CCDS Certified Clinical Leveler Director of Clinical Documentation W) [phone] (f) [phone] [email or web address] PROVIDERS: Make your selection(s) from the choices in EACH section by typing an "x" and enter comments in the comment section. Please use your independent medical judgment in providing your response. This request does not imply that any particular answer is desired or expected. CLINCAL INDICATORS: (Providers should not edit this section) Patient admitted with Malignant Hypertension, BP in ER 228/151, started on cardene infusion and admitted to ICU *Malignant htn codes to essential hypertension and does not indicate an acute condition, rather a stable, chronic one. Note: Hypertensive crises can present as hypertensive urgency or hypertensive emergency. Clarify which, if any of the following, is a more accurate diagnosis reflecting the type and acuity of the documented hypertension: TYPE: (x ) Hypertensive Urgency ( ) Hypertensive Emergency ( ) Uncontrolled chronic hypertension at baseline ( ) Other, please specify: ( ) Clinically unable to determine Criteria Source - Up to Date (This topic last updated: Nov 26, 2015) HYPERTENSIVE URGENCY: Severe hypertension (usually a diastolic blood pressure above 120 mmHg) in asymptomatic patients is referred to as hypertensive urgency. There is no proven benefit from rapid reduction in blood pressure in asymptomatic patients who have no evidence of acute end-organ damage and are at little short-term risk. HYPERTENSIVE EMERGENCY: Severe hypertension (usually a diastolic blood pressure above 120 mmHg) with evidence of acute end-organ damage is defined as a hypertensive emergency. A hypertensive emergency can be life threatening and requires immediate treatment, usually with parenteral medications in a monitored setting. COMMENTS: Use of terms such as suspected, likely, or probable (associated with a specific diagnosis that is being evaluated, monitored, or treated as if it exists) are acceptable and can be restated in the discharge summary if not ruled out. MTDD
--- NOTE | 2016-10-12 10:53 | Physician Query Form ---
CLICK EDIT DOCUMENT TO SELECT QUERY ANSWER --> OK --> SIGN Jenni France RN, CCDS Certified Clinical Manager Analysis Director of Clinical Documentation W) [phone] (f) [phone] [email or web address] PROVIDERS: Make your selection(s) from the choices in EACH section by typing an "x" and enter comments in the comment section. Please use your independent medical judgment in providing your response. This request does not imply that any particular answer is desired or expected. CLINICAL INDICATORS: (Providers should not edit this section) Patient admitted with severe hypertension, SOB with BNP 2249, documented acute renal insufficiency. Cr on admission was 1.5, GFR was 48. Clarify which of the following most accurately represents the patient's renal status: ( x) Acute kidney injury (non-traumatic) ( ) Acute renal failure ( ) Acute renal failure with underlying Chronic Kidney Disease (CKD) - please provide stage below ( ) Acute renal failure with pathological renal lesion ( ) CKD - please provide stage below ( ) End Stage Renal Disease ( ) Other, please specify: ( ) Clinically unable to determine Chronic Kidney Disease Stages Source: National Kidney Disease Foundation ( ) Stage I (eGFR > or = 90) ( ) Stage II (eGFR 60 - 89) ( ) Stage III (eGFR 30 - 59) ( ) Stage IV (eGFR 15 - 29) ( ) Stage V (eGFR < 15 or dialysis) COMMENTS: Use of terms such as suspected, likely, or probable (associated with a specific diagnosis that is being evaluated, monitored, or treated as if it exists) are acceptable and can be restated in the discharge summary if not ruled out. MTDD
== END 2016-10-11 13:58 | disposition home or self-care (01) | DRG 305 ==
LOC: N.ED 04:29 → N.EDINP 07:30 → N.ICU 08:32 → N.TELEN 17:44
PROVIDERS: ADMIT Family Medicine; ATTEND Family Medicine

== ENCOUNTER 2017-02-06 04:24 | Inpatient (IN) ==
[2017-02-06] MEDS ORDERED: ALBUTEROL/IPRATROPIUM 3 ML NEB RESP TX STA (04:37)
[2017-02-06] MEDS ORDERED: methylPREDNISolone SOD SUC 125 MG/2 ML VIAL IV STA (04:37)
[2017-02-06] MEDS ORDERED: methylPREDNISolone SOD SUC 125 MG/2 ML VIAL ONE (04:47)
[2017-02-06 04:48] LABS: Basophils # 0.1 10*3/uL (0.0-0.2); Basophils % 0.6 % (0.0-0.8); Eosinophils # 0.3 10*3/uL (0.0-0.87); Eosinophils % 3.3 % (0.00-10.9); Hematocrit 32.4 VOL% (35.7-47.0); Hemoglobin 9.9 GM/DL (12.0-16.0); Immature Granulocytes % 0.3 %; Immature Granulocytes Absolute 0.02 #; Lymphocytes % 26.1 % (21.3-54.2); Mean Corpuscular HGB Conc 30.6 GM/DL (32-36); Mean Corpuscular Hemoglobin 22 PG (27-34); Mean Corpuscular Volume 71.8 FL (87-102); Monocytes # 0.6 10*3/uL (0.11-0.8); Monocytes % 7.8 % (1.7-12.7); Neutrophils # 4.9 10*3/uL (1.4-7.4); Neutrophils % 61.9 % (38.7-73.9); Platelet Count 315 T/CUMM (130-400); Red Blood Count 4.51 MC/CUMM (3.8-5.5); Red Cell Distribution Width 19.5 % (9.3-17.3); White Blood Count 7.8 T/CUMM (4-12)
[2017-02-06] MEDS ORDERED: FUROSEMIDE 40 MG/4 ML VIAL IV STA ×2 (04:54→05:37)
[2017-02-06] MEDS ORDERED: cloNIDine 0.1 MG TABLET PO STA ×2 (04:54→05:37)
--- NOTE | 2017-02-06 04:54 | Emergency Department Note ---
IChris Kasabria, am scribing for, and in the presence of, Amanda Horn DO 04 :42. IKory Debra, DO, personally performed the services described in this documentation, ascribed by Ema Perez in my presence, and it is both accurate and complete 454 . Arrival - Arrival Stated Complaint: short of breath Limitations: No Limitations Source: Patient Time Seen by Provider: 02/06/17 04:27 - History of Present Illness HPI Narrative: This is a 36 y/o black female presenting to the ED with c/o SOB that onset two weeks ago. Pt states she has an upper respiratory infection. She was coughing up green and yellow mucus. Yesterday was the first time she vomited. There are family members at home who are sick with cold symptoms. Pt denies taking a breathing treatment. She denies fever, chills, nausea, diarrhea, MUNIZ, vision change, diaphoresis, and dysuria. Her PMHx is consistent with HTN, endometriosis , and cerebrovascular accident. Consistency: constant Severity: moderate Allergies/Adverse Reactions: Allergies Allergy/AdvReac Type Severity Reaction Status Date / Time No Known Allergies Allergy Unverified 01/04/15 20:18 Home Medications: Home Medications Medication Instructions Recorded Confirmed Type Carvedilol [Coreg] 12.5 mg PO BID #60 tablet 10/11/16 02/06/17 Rx amLODIPine [Norvasc] 10 mg PO DAILY #30 tablet 10/11/16 02/06/17 Rx cloNIDine TAB [Catapres Tab] 0.1 mg PO TID #90 tablet 10/11/16 02/06/17 Rx hydrALAZINE TAB [Apresoline Tab] 50 mg PO BID #60 tablet 10/11/16 02/06/17 Rx Review of System - Review of System 12 point system: reviewed and no additional remarkable complaints except as stated - Review of System Constitutional: Absent: chills, fever, weakness Eyes: Absent: vision change Head/Ears/Nose/Throat: Absent: nasal drainage Respiratory: Present: wheezing. Absent: cough Cardiovascular: Present: dyspnea on exertion. Absent: chest pain Gastrointestinal: Present: vomiting (once earlier ). Absent: abdominal pain, nausea, diarrhea Genitourinary female: Absent: dysuria Musculoskeletal: Absent: arm pain, back pain, leg pain, neck pain Skin: Absent: rash Neurological: Absent: headache, weakness, confusion, vertigo Psychiatric: Absent: anxiety Endocrine: Absent: fatigue Allergic/Immunologic: Absent: facial swelling Medical,Surgical,& Family Hx - Medical History Cardio: History of: Hypertension Psychological: History of: Depression Neurology: History of: Cerebrovascular Accident No history of: Brain Aneurysm, Cerebral Hemorrhage, Cerebral Palsy, Dementia , Migraine, Multiple Sclerosis, Parkinson's Disease, Peripheral Neuropathy, Seizures, TIA, Vertigo, Neurologocal Cancer Respiratory: History of: Obstructive Sleep Apnea ("My mother says I need a sleep study done.") Genitourinary: History of: Problems (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 for which she has had no follow-up) Gastrointestinal: History of: GERD, Hemorrhoids Musculoskeletal: No history of: Amputation Reproductive: History of: Endometriosis, Ectopic (2000) - Surgical History Cardiac Surgeries: Patient Denies: Cardiac Catheterization Thoracic Surgeries: Patient denies;: Lobectomy Neurologic Surgeries: Patient denies: Brain Aneurysm, Cerebral Hemorrhage, Neurologic Surgery HEENT Surgeries: Patient denies: Tonsilectomy & Adenoidectomy Abdominal Surgeries: Patient denies: Abdominal Surgery Reproductive Surgeries: Surgical HX of;: Gynecologic Surgery Comment Only: Tubal Ligation (2000 had one fallopian tube removed after ectopic ) - Family History Family History: Reports;: Family Cancer (aunt, greataunt), Family Diabetes ( mother, grandmother, aunt, uncle), Family Hypertension ("everyone in my family") Denies;: Family Anesthesia Reaction - Social History Smoking Status: Current every day smoker Exam Vital Signs: Vital Signs Temperature 98.0 F 02/06/17 04:25 Pulse Rate 90 02/06/17 04:58 Respiratory Rate 22 02/06/17 04:58 Blood Pressure 249/154 02/06/17 04:25 O2 Sat by Pulse Oximetry 100 02/06/17 04:58 - General General appearance: alert, in no apparent distress - Head Head exam: Present: atraumatic, normocephalic, normal inspection - Eye Eye exam: Present: normal appearance, PERRL, EOMI - ENT ENT exam: Present: normal exam, normal oropharynx, mucous membranes moist, TM's normal bilaterally, normal external ear exam - Neck Neck exam: Present: normal inspection, full ROM, trachea midline. Absent: tenderness - Chest Chest inspection: Present: normal inspection, symmetric chest wall rise. Absent : tenderness - Respiratory Respiratory exam: Present: wheezes (expiratory ) - Cardiovascular Cardiovascular exam: Present: regular rate, normal rhythm, normal heart sounds - Abdominal Exam Abdominal exam: Present: soft, normal bowel sounds. Absent: distention, tenderness - Extremities Exam Extremities exam: Present: normal inspection, full ROM, normal capillary refill. Absent: tenderness, pedal edema - Back Exam Back exam: Present: normal inspection, full ROM. Absent: tenderness - Neurological Exam Neurological exam: Present: alert, oriented X3, CN II-XII intact, normal gait, reflexes normal - Psychiatric Psychiatric exam: Present: normal affect, normal mood - Skin Skin exam: Present: warm, dry, intact, normal color. Absent: rash, diaphoresis Course Course Narrative: spoke with hospitalist. pt to be admitted, in stable condition . Results - Labs CBC & BMP: 02/06/17 04:36 02/06/17 04:36 Lab Results: I have reviewed the patients labs - Diagnostic Findings Procedure: Chest x-ray: image reviewed by me (chf, ) Disposition Clinical Impression: CHF (congestive heart failure), Hypertension Case discussed with: patient Disposition: Still a Patient Condition: Stable Time of Disposition: 05:40
[2017-02-06] MEDS ORDERED: FUROSEMIDE 40 MG/4 ML VIAL ONE ×2 (04:57→05:42)
[2017-02-06] MEDS ORDERED: cloNIDine 0.1 MG TABLET ONE ×2 (04:57→05:37)
[2017-02-06 05:13] LABS: Albumin 3.5 G/DL (3.4-5.0); Bilirubin,Total 0.4 MG/DL (0.2-1.0); Calcium 8.1 MG/DL (8.5-10.1); Osmolality,Calculated 280.4 MOS/KG (273-304); Potassium 3.4 MMOL/L (3.5-5.1); Total Protein 6.7 G/DL (6.4-8.3)
--- NOTE | 2017-02-06 06:26 | Hospitalist History & Physical ---
Assessment and Plan (1) Hypertensive urgency, malignant Status: Acute Assessment and plan: Hypertensive urgency with pulmonary edema - CCU - oxygen - EKG/telemetry - serial cardiac enzymes - echocardiogram; Echo in 09/2016 showed EF of 70%, severe left ventricular hypertrophy, and diastolic dysfunction - IV cardene infusion - restart home medications - IV lasix given in the ER - I's and O's - will monitor Current Visit: Yes (2) Chronic kidney disease Status: Acute Assessment and plan: CKD - creatinine stable - will monitor Current Visit: Yes Qualifiers: Chronic kidney disease stage: stage 3 (moderate) Qualified Code(s): N18.3 - Chronic kidney disease, stage 3 (moderate) History of Present Illness Chief complaint: shortness of breath History of present illness: Ms. Cook is a 36 year old female with a history of malignant hypertension presented to the ER with shortness of breath that has been worsening for the past 1 week. Patient reports that she has been coughing up clear mucus and is also has some posttussive vomiting. She reports some moderate chest tightness that has not resolved. Patient denies any diaphoresis, palpitations, any other symptoms. Patient reports being out of her medicine for blood pressure although some of her medications are on the counter with pills in them and refills are on the label. Patient is a smoker. In the ER, patient was found to have a blood pressure 249/154. Chest x-ray also show pulmonary edema. It was felt the patient was in hypertensive urgency. Patient was given IV Lasix and two doses of clonidine. Patient was admitted in September 2016 with similar symptoms. Patient was placed on a Cardene drip at that time and blood pressure improved and Cardene was weaned. Patient's blood pressure was stable with just her home medications. It is felt that patient noncompliant. Echocardiogram at that time showed an EF of 70%, severe left ventricular hypertrophy, and diastolic dysfunction. She reports she does not have a PCP. Patient will be admitted to the CCU, a Cardene drip will be initiated, and home blood pressure medication will be given. Home Medications Medication Instructions Recorded Confirmed Type Carvedilol [Coreg] 12.5 mg PO BID #60 tablet 10/11/16 02/06/17 Rx amLODIPine [Norvasc] 10 mg PO DAILY #30 tablet 10/11/16 02/06/17 Rx cloNIDine TAB [Catapres Tab] 0.1 mg PO TID #90 tablet 10/11/16 02/06/17 Rx hydrALAZINE TAB [Apresoline Tab] 50 mg PO BID #60 tablet 10/11/16 02/06/17 Rx Allergies Allergy/AdvReac Type Severity Reaction Status Date / Time No Known Allergies Allergy Unverified 01/04/15 20:18 Medical,Surgical,& Family Hx - Medical History Cardio: History of: Hypertension Psychological: History of: Depression Neurology: History of: Cerebrovascular Accident No history of: Brain Aneurysm, Cerebral Hemorrhage, Cerebral Palsy, Dementia , Migraine, Multiple Sclerosis, Parkinson's Disease, Peripheral Neuropathy, Seizures, TIA, Vertigo, Neurologocal Cancer Respiratory: History of: Obstructive Sleep Apnea ("My mother says I need a sleep study done.") Genitourinary: History of: Problems (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 for which she has had no follow-up) Gastrointestinal: History of: GERD, Hemorrhoids Musculoskeletal: No history of: Amputation Reproductive: History of: Endometriosis, Ectopic (2000) - Surgical History Cardiac Surgeries: Patient Denies: Cardiac Catheterization Thoracic Surgeries: Patient denies;: Lobectomy Neurologic Surgeries: Patient denies: Brain Aneurysm, Cerebral Hemorrhage, Neurologic Surgery HEENT Surgeries: Patient denies: Tonsilectomy & Adenoidectomy Abdominal Surgeries: Patient denies: Abdominal Surgery Reproductive Surgeries: Surgical HX of;: Gynecologic Surgery Comment Only: Tubal Ligation (2000 had one fallopian tube removed after ectopic ) - Family History Family History: Reports;: Family Cancer (aunt, greataunt), Family Diabetes ( mother, grandmother, aunt, uncle), Family Hypertension ("everyone in my family") Denies;: Family Anesthesia Reaction - Social History Smoking Status: Current every day smoker Frequency of Alcohol Use: Occasionally Type of Drug Use: None 12 point system: reviewed and no additional remarkable complaints except as stated Exam - Constitutional Vitals: Period Temp Pulse Resp BP Sys/Doshi Pulse Ox Last 24 Hr 98.0 F-98.0 F 90-119 20-26 249-249/154-154 95-100 General appearance: normal weight, no acute distress - Head Head exam: Present: normal inspection - Eye Eye exam: Present: EOMI. Absent: periorbital swelling Pupils: Present: BLANCA. Absent: dilated - Respiratory Respiratory exam: Present: other (coarse breath sound throughout) - Cardiovascular Cardiovascular exam: Present: regular rate and rhythm. Absent: diastolic murmur , systolic murmur - GI/Abdominal GI/Abdominal exam: Present: normal bowel sounds, soft. Absent: tenderness - Extremities Exam Extremities exam: Present: full ROM. Absent: edema - Neurological Exam Neurological exam: Present: alert, oriented X3, normal gait - Psychiatric Psychiatric exam: Present: normal affect, normal mood - Skin Skin exam: Present: normal color, warm, dry Results - Labs CBC & BMP: 02/06/17 04:36 02/06/17 04:36 - Diagnostic Findings Procedure: Chest x-ray: pending
--- NOTE | 2017-02-06 08:42 | XRay Report ---
XR chest 1V portable Indication: Shortness of breath Comparison: 10 October 2016 Findings: The heart and mediastinum are stable in size and configuration. The pulmonary vascularity is normal in caliber. Interstitial pulmonary density is present similar to previous exam. No other lung infiltrates, effusions, pneumothorax or other abnormality is demonstrated. Impression: No significant change. PROCEDURE INTERPRETED AT [facility] Final Report Signed by: Dr. Mann Okeefe
[2017-02-06] MEDS ORDERED: ONDANSETRON 4 MG/2 ML VIAL IV PRN (10:17)
[2017-02-06] MEDS ORDERED: PROMETHAZINE 25 MG/1 ML VIAL IM PRN (10:17)
[2017-02-06] MEDS ORDERED: ACETAMINOPHEN 325 MG TABLET PO PRN (10:17)
[2017-02-06] MEDS ORDERED: guaiFENesin/DM ER 600-30 MG TABLET PO PRN (10:17)
[2017-02-06] MEDS ORDERED: ALBUTEROL 2.5 MG/3 ML NEB RESP TX PRN (10:17)
[2017-02-06] MEDS ORDERED: PROMETHAZINE 25 MG TABLET PO PRN (10:17)
[2017-02-06] MEDS ORDERED: NICOTINE 21 MG/24 HR PATCH TRANSDERM PRN (10:17)
[2017-02-06 10:56] LABS: Barbiturates Screen,Urine Negative (Negative); Benzodiazepines Screen,Urine Negative (Negative); Cannabinoid Screen,Urine Positive (Negative); Opiate Screen,Urine Negative (Negative); Phencyclidine Screen,Urine Negative (Negative)
[2017-02-06] MEDS: niCARdipine INJ 25 MG in SODIUM CHLORIDE 0.9% 240 ML IV SCH (11:10)
[2017-02-06] MEDS: PANTOPRAZOLE 40 MG TABLET PO SCH (12:05)
[2017-02-06] MEDS: CARVEDILOL 12.5 MG TABLET PO SCH ×2 (12:05→22:31)
[2017-02-06] MEDS: ENOXAPARIN 40 MG/0.4 ML SYRINGE SUBCUT SCH (12:05)
[2017-02-06 12:10] LABS: Troponin I Only 0.034 NG/ML (0.00-0.045)
[2017-02-06] MEDS: cloNIDine 0.1 MG TABLET PO SCH ×3 (12:10→22:31)
[2017-02-06] MEDS: amLODIPine 10 MG TABLET PO SCH (12:10)
--- NOTE | 2017-02-06 12:43 | Event Note ---
Patient seen interviewed and examined. She is just been brought to the intensive care unit within the last hour patient admitted to the hospital in the director product safety hours of today. We have the hospital with hypertensive emergency presented to the ICU given after all with the systolic blood pressure to 290/146. Current blood pressure after receiving oral medication and still on IV Cardene is 67/101. Patient claims that she is to be on Diovan hydrochlorothiazide 320/25 and blood pressure been controlled. In the interim she got at the takeoff the angiotensin receptor margy. She was left on beta-blockers clonidine hydralazine and for some reason she said this does not control her blood pressure. He also however has had abstain from taking these medication for a week because "she could not afford them." Noted on assessment by primary care nurse said that the differential diastolic blood pressure is on the right on the left. Patient has never been evaluated for coarctation. If these continue to be an issue a CTA of the chest vessel should be done. On examination she is awake alert and answers questions appropriately no acute distress neurologic assessment is unremarkable with a full range of motion good cognitive activity. Lungs are clear to auscultation heart is regular tones with high blood pressures on the monitor. Abdomen is soft nontender. Musculoskeletal assessment is unremarkable. Skin and skin appendages are normal. Plan is to resume her blood pressure medications here. She just received multiple once now I will leave it does kick in if there is no change in blood pressure I will give her her Diovan plus clonidine. In the meantime continue IV Cardene. There is no charge for the service was patient was admitted area this morning please refer to the H&P for details
[2017-02-06] MEDS: VALSARTAN/HCTZ 160-12.5 MG TABLET PO SCH (14:44)
--- NOTE | 2017-02-06 16:06 | ECHO Report ---
Jacqueline Cook Exam Date: 02/06/2017 10:47 Referring Physician: Technologist: Edie Louis Age: 36 Ht (in): 64 Wt (lb): 138 Gender: F Exam Location: [facility] Echo Indications: SOB, CKD, HTN, CHF BP: 249 / 154 HR: 99 Rhythm: Sinus Technical Quality: Good IMPRESSIONS 1. Left ventricle is normal size systolic function with ejection fraction 50-55%. There is moderate concentric left ventricular hypertrophy. 2. Other cardiac chambers are normal size and function. 3. Mild to moderate mitral valve regurgitation. 4. Trace to mild tricuspid regurgitation. 5. Based on this study mildly elevated right-sided pressures. MEASUREMENTS (Male / Female) Normal Values 2D ECHO LV Diastolic Diameter PLAX 3.9 cm 4.2 - 5.9 / 3.9 - 5.3 cm LV Systolic Diameter PLAX 3.3 cm LV Fractional Shortening PLAX 15.2 % IVS Diastolic Thickness 1.6 cm 0.6 - 1.0 / 0.6 - 0.9 cm LVPW Diastolic Thickness 1.7 cm 0.6 - 1.0 / 0.6 - 0.9 cm RV Internal Dim ED PLAX 2.2 cm Aortic Root Diameter 2.3 cm LA Systolic Diameter LX 3.6 cm 3.0 - 4.0 / 2.7 - 3.8 cm DOPPLER TR Peak Velocity 304.0 cm/s TR Peak Gradient 37.0 mmHg FINDINGS Left Ventricle Left ventricle is normal size and systolic function with ejection fraction of 50-55%. No segmental wall motion normality's. There is moderate concentric left ventricular hypertrophy. No diastolic dysfunction is determined on this study. Right Ventricle Normal right ventricular size. Right Atrium Normal right atrial size. Left Atrium Normal left atrial size. Mitral Valve Anatomically morphologically normal mitral valve. Mild-moderate mitral valve regurgitation. Aortic Valve Aortic valve appears to be grossly anatomically and functionally normal. No Doppler masses noted. Tricuspid Valve Morphologically normal tricuspid valve. Trace to mild tricuspid valve regurgitation. Tricuspid regurgitation velocities suggest a PAP of 42- 47 mmHg. Pulmonic Valve Morphologically normal pulmonic valve. Pericardium No pericardial effusion. Aorta Normal size aortic root and proximal ascending aorta. Luciano Thompson MD (Electronically Signed) Final Date: 06 Feb 2017 16:06
[2017-02-06 18:30] LABS: Troponin I Only 0.027 NG/ML (0.00-0.045)
[2017-02-07 02:27] LABS: Basophils % 0.2 % (0.0-0.8); Hematocrit 32.4 VOL% (35.7-47.0); Hemoglobin 9.9 GM/DL (12.0-16.0); Immature Granulocytes % 0.3 %; Immature Granulocytes Absolute 0.03 #; Lymphocytes # 1.8 10*3/uL (1.4-4.0); Lymphocytes % 18.5 % (21.3-54.2); Mean Corpuscular HGB Conc 30.6 GM/DL (32-36); Mean Corpuscular Hemoglobin 21 PG (27-34); Mean Corpuscular Volume 69.7 FL (87-102); Neutrophils # 6.9 10*3/uL (1.4-7.4); Platelet Count 299 T/CUMM (130-400); Red Blood Count 4.65 MC/CUMM (3.8-5.5); Red Cell Distribution Width 19.2 % (9.3-17.3); White Blood Count 9.8 T/CUMM (4-12)
[2017-02-07 02:46] LABS: Albumin 3.3 G/DL (3.4-5.0); Bilirubin,Total 0.5 MG/DL (0.2-1.0); Calcium 8.4 MG/DL (8.5-10.1); Magnesium 2.1 MG/DL (1.8-2.4); Osmolality,Calculated 280.5 MOS/KG (273-304); Potassium 3.5 MMOL/L (3.5-5.1); Risk Ratio 3.24; Total Protein 6.4 G/DL (6.4-8.3); Troponin I Only 0.027 NG/ML (0.00-0.045); VLDL CHOLESTEROL 16.4 MG/DL
[2017-02-07] MEDS: amLODIPine 10 MG TABLET PO SCH (08:40)
[2017-02-07] MEDS: PANTOPRAZOLE 40 MG TABLET PO SCH (08:40)
[2017-02-07] MEDS: VALSARTAN/HCTZ 160-12.5 MG TABLET PO SCH (08:41)
[2017-02-07] MEDS: cloNIDine 0.1 MG TABLET PO SCH (08:41)
[2017-02-07] MEDS: CARVEDILOL 12.5 MG TABLET PO SCH (08:41)
[2017-02-07] MEDS: niCARdipine INJ 25 MG in SODIUM CHLORIDE 0.9% 240 ML IV SCH (11:08)
[2017-02-07] MEDS: ENOXAPARIN 40 MG/0.4 ML SYRINGE SUBCUT SCH (12:13)
[2017-02-07 12:22] VITALS: BP 129/70
--- NOTE | 2017-02-07 12:43 | Discharge Summary ---
<Singh Anaya - Last Filed: 02/07/17 12:39> Discharge Plan - Discharge Data Disposition: Disch To Home/Self Care Condition at Discharge: Stable Discharge Diet: heart healthy Activity: resume usual activities as tolerated Hygiene: no restrictions Driving: not until seen by doctor Contact your physician if you experience:: Nausea/Vomiting, Shortness of breath - Discharge Medications New Carvedilol [Coreg] 12.5 mg PO BID #60 tablet Valsartan/Hctz 160-12.5 [Diovan Hct 160-12.5] 2 tablet PO DAILY #30 tablet amLODIPine [Norvasc] 10 mg PO DAILY #30 tablet hydrALAZINE TAB [Apresoline Tab] 50 mg PO BID #60 tablet cloNIDine TAB [Catapres Tab] 0.1 mg PO TID #90 tablet Discontinued Carvedilol [Coreg] 12.5 mg PO BID #60 tablet amLODIPine [Norvasc] 10 mg PO DAILY #30 tablet cloNIDine TAB [Catapres Tab] 0.1 mg PO TID #90 tablet hydrALAZINE TAB [Apresoline Tab] 50 mg PO BID #60 tablet - Follow Up or Referral - Forms/Instructions Instructions: Heart Failure (DC), Chronic Hypertension (DC) Exam - Constitutional Vitals: Period Temp Pulse Resp BP Sys/Dohsi Pulse Ox Last 24 Hr 95.1 F-98.8 F 74-89 18-22 129-180/70-107 92-100 General appearance: normal weight - Head Head exam: Present: normal inspection, normocephalic, atraumatic - Eye Eye exam: Present: EOMI Pupils: Present: BLANCA - ENT ENT exam: Present: normal exam - Neck Neck exam: Present: normal inspection - Respiratory Respiratory exam: Present: clear to auscultation bilaterally - Cardiovascular Cardiovascular exam: Present: regular rate and rhythm - GI/Abdominal GI/Abdominal exam: Present: normal bowel sounds, soft - Extremities Exam Extremities exam: Present: full ROM - Back Exam Back exam: Present: normal inspection - Neurological Exam Neurological exam: Present: alert, oriented X3, CN II-XII intact - Psychiatric Psychiatric exam: Present: normal affect, normal mood - Skin Skin exam: Present: normal color, warm Discharge Results Labs on day of discharge: Labs from last 24 hours 02/07/17 02/07/17 02/07/17 02:17 02:17 02:17 WBC 9.8 RBC 4.65 Hgb 9.9 L Hct 32.4 L MCV 69.7 L MCH 21 L MCHC 30.6 L RDW 19.2 H Plt Count 299 MPV 10.0 Neut % (Auto) 71.0 Lymph % (Auto) 18.5 L [place] % (Auto) 10.0 Eos % (Auto) 0.0 Baso % (Auto) 0.2 Neut # (Auto) 6.9 Lymph # (Auto) 1.8 [place] # (Auto) 1.0 H Eos # (Auto) 0.0 Baso # (Auto) 0.0 Immature Gran % 0.3 Nucleated RBC % 0.0 Immature Gran # 0.03 Nucleated RBCs # 0.00 Sodium 139 Potassium 3.5 Chloride 104 Carbon Dioxide 26 Anion Gap 12.5 BUN 22 H Creatinine 1.70 H GFR Calculation 42 BUN/Creatinine Ratio 12.00 Glucose 108 H Calculated Osmolality 280.5 Calcium 8.4 L Magnesium 2.1 Total Bilirubin 0.50 AST 14 ALT 19 Alkaline Phosphatase 82 Total Creatine Kinase CK-MB (CK-2) Troponin I B-Natriuretic Peptide 744 H Total Protein 6.4 Albumin 3.3 L Globulin 3.1 Albumin/Globulin Ratio 1.0 L Triglycerides 82 Cholesterol 149 LDL Cholesterol 89.0 VLDL Cholesterol 16.4 HDL Cholesterol 46 Heart Disease Risk Ratio 3.24 02/07/17 02/06/17 02:17 17:51 WBC RBC Hgb Hct MCV MCH MCHC RDW Plt Count MPV Neut % (Auto) Lymph % (Auto) [place] % (Auto) Eos % (Auto) Baso % (Auto) Neut # (Auto) Lymph # (Auto) [place] # (Auto) Eos # (Auto) Baso # (Auto) Immature Gran % Nucleated RBC % Immature Gran # Nucleated RBCs # Sodium Potassium Chloride Carbon Dioxide Anion Gap BUN Creatinine GFR Calculation BUN/Creatinine Ratio Glucose Calculated Osmolality Calcium Magnesium Total Bilirubin AST ALT Alkaline Phosphatase Total Creatine Kinase 127 D 172 CK-MB (CK-2) 1.2 1.8 Troponin I 0.027 0.027 B-Natriuretic Peptide Total Protein Albumin Globulin Albumin/Globulin Ratio Triglycerides Cholesterol LDL Cholesterol VLDL Cholesterol HDL Cholesterol Heart Disease Risk Ratio DS: Provider Date of admission: 02/06/17 06:07 Primary care physician: . No PCP Attending physician on admission: Mason Bella Discharging clinician: Singh Anaya MD <Raoul Smiley - Last Filed: 02/07/17 14:31> Hospital Course - Hospital Course Hospital Course: This is a very pleasant 36 year old female that presented to the ED at [facility] on for evaluation of shortness of breath x 2 weeks. The patient has a rather impressive medical history of hypertension, cerebral vascular accident, obstructive sleep apnea, hemorrhoids, depression, ectopic , and GERD. She has a surgical history of tubal ligation. She reported the onset of the above symptoms 2 weeks prior to presentation and attributed them to an upper respiratory infection. She reported a productive cough with mucus green and yellow in color. In addition, she reported an episode of nausea and vomiting on yesterday. She reports recent exposure to ill individuals; in that her entire family is experiencing the same cold symptoms. At the time of ED presentation, the patient was noted to be experiencing respiratory distress with a noted audible wheeze. Her blood pressure was grossly elevated at 249/154. Labs were obtained which revealed hypokalemia with a potassium level at 3.4, mild renal insufficiency with a BUN at 19 and creatinine at 1.50. Her BNP was grossly elevated at 1593. Chest radiograph suggested congestive heart failure. The patient was subsequently admitted to critical care for continuation of care. Intravenous anti-hypertensive agents were initiated. Her condition improved and her blood pressures stabilized. She was transferred from ICU on 02/06 to the telemetry unit. Her condition remains stable. She experienced no significant overnight events. Today, we feel that she is indeed appropriate for discharge home to follow-up with her PCP as directed.
--- NOTE | 2017-02-07 12:59 | EKG Report ---
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
--- NOTE | 2017-02-08 16:09 | Physician Query Form ---
CLICK EDIT DOCUMENT TO SELECT QUERY ANSWER --> OK --> SIGN Gayle Pereira RN Clinical Delivery Driver/Customer Service W) [phone] (f) [phone] [email or web address] PROVIDERS: Make your selection(s) from the choices in EACH section by typing an "x" and enter comments in the comment section. Please use your independent medical judgment in providing your response. This request does not imply that any particular answer is desired or expected. CLINICAL INDICATORS: (Providers should not edit this section) Based on documentation of "CHF" in ER record. NBH=[id number], "Echo in 09/2016 showed EF of 70%, severe left ventricular hypertrophy, and diastolic dysfunction". Pt. treated with IV Lasix. Please provide further specificity regarding CHF. ACUITY: ( ) Acute ( ) Chronic (X ) Acute on Chronic ( ) Clinicallly unable to determine TYPE: ( ) Systolic (HFrEF - heart failure with reduced systolic function/EF) (X ) Diastolic (HFpEF - heart failure with preserved systolic function/EF) ( ) Combined Systolic/Diastolic ( ) Other, please specify: ( ) Clinically unable to determine ( ) The patient does NOT have CHF COMMENTS: PLEASE ALSO DOCUMENT RESPONSE IN PROGRESS NOTES AND/OR DISCHARGE SUMMARY Use of terms such as suspected, likely, or probable (associated with a specific diagnosis that is being evaluated, monitored, or treated as if it exists) are acceptable and can be restated in the discharge summary if not ruled out. MTDD
== END 2017-02-07 13:45 | disposition home or self-care (01) | DRG 304 ==
LOC: EDBD → EDUNIT# → N.ED 04:24 → N.EDINP 06:07 → SUATTDRO 06:07 → N.ICU 10:20 → N.TELES 17:01
PROVIDERS: ADMIT Family Medicine; ATTEND Internal Medicine Infectious Disease

== ENCOUNTER 2018-01-16 07:11 | Inpatient (IN) ==
[2018-01-16] MEDS ORDERED: ASPIRIN 325 MG TABLET PO STA ×2 (07:26→07:41)
[2018-01-16] MEDS ORDERED: ALBUTEROL 2.5 MG/3 ML NEB RESP TX STA (07:34)
[2018-01-16] MEDS ORDERED: METOPROLOL TARTRATE 5 MG/5 ML VIAL IV STA ×3 (07:41→08:06)
[2018-01-16] MEDS ORDERED: METOPROLOL TARTRATE 5 MG/5 ML VIAL IV ONE ×3 (07:44→08:14)
[2018-01-16] MEDS ORDERED: ASPIRIN 325 MG TABLET ONE (07:45)
[2018-01-16 08:09] LABS: Basophils % 0.6 % (0.0-0.8); Eosinophils # 0.2 10*3/uL (0.0-0.87); Hematocrit 39.1 VOL% (35.7-47.0); Hemoglobin 12.5 GM/DL (12.0-16.0); Immature Granulocytes % 0.4 %; Immature Granulocytes Absolute 0.02 #; Lymphocytes # 1.1 10*3/uL (1.4-4.0); Lymphocytes % 19.6 % (21.3-54.2); Mean Corpuscular Hemoglobin 25 PG (27-34); Mean Corpuscular Volume 76.5 FL (87-102); Monocytes # 1.1 10*3/uL (0.11-0.8); Monocytes % 20.2 % (1.7-12.7); Neutrophils % 55.2 % (38.7-73.9); Platelet Count 303 T/CUMM (130-400); Red Blood Count 5.11 MC/CUMM (3.8-5.5); Red Cell Distribution Width 18.7 % (9.3-17.3); White Blood Count 5.5 T/CUMM (4-12)
[2018-01-16 08:27] LABS: Alanine Aminotransferase 15 U/L (13-56); Albumin 3.6 G/DL (3.4-5.0); Alkaline Phosphatase 86 U/L (45-117); Aspartate Amino Transferase 20 U/L (0-37); Bilirubin,Total < 0.39 MG/DL (0.2-1.0); Calcium 8.8 MG/DL (8.5-10.1); Total Protein 7.9 G/DL (6.4-8.3)
[2018-01-16 08:28] LABS: Blood Urea Nitrogen 18 MG/DL (7-18); Glucose 89 MG/DL (74-106); Osmolality,Calculated 275.7 MOS/KG (273-304); Partial Thromboplastin Time 28.9 SECS (0-40); Potassium 3.3 MMOL/L (3.5-5.1); Sodium 138 MMOL/L (136-145)
[2018-01-16 08:30] LABS: Band Neutrophils 1 % (0-10); Eosinophils 4 % (0-10); Hypochromasia 1+; Lymphocytes 17 % (20-55); Platelet Estimate Adequate; Segmented Neutrophils 64 % (50-85); Total Cells Counted 100
[2018-01-16 08:31] LABS: Giant Platelets Few; Ovalocytes Slight
[2018-01-16] MEDS ORDERED: niCARdipine 25 MG/10 ML VIAL IV ONE (09:26)
[2018-01-16] MEDS: niCARdipine INJ 25 MG in SODIUM CHLORIDE 0.9% 240 ML IV PRN ×2 (09:36→15:54)
[2018-01-16 11:02] LABS: Apearance,Urine CLEAR (Clear); Bilirubin,Urine Negative (Negative); Blood, Urine Small mg/dL (Negative); Glucose,Urine (UA) Negative (Negative); Ketones,Urine Negative (Negative); Mucus,Urine Occasional /LPF (Occasional); Nitrite,Urine Negative (Negative); Protein,Urine Negative; RBC,Urine 4 /HPF (0-4); Squamous Epithelial Cell,Urine Occasional /HPF (0-10); Urine Color Straw (Yellow); Urine Specific Gravity 1.011 (1.001-1.035); Urine Urobilinogen < 2.0 EU/DL (0.2-1.0); WBC,Urine 2 /HPF (0-6)
[2018-01-16] MEDS ORDERED: ONDANSETRON 4 MG/2 ML VIAL IV PRN (11:54)
[2018-01-16] MEDS ORDERED: ACETAMINOPHEN 325 MG TABLET PO PRN (11:54)
[2018-01-16 11:59] LABS: Barbiturates Screen,Urine Negative (Negative); Benzodiazepines Screen,Urine Negative (Negative); Cannabinoid Screen,Urine Positive (Negative); Opiate Screen,Urine Negative (Negative); Phencyclidine Screen,Urine Negative (Negative)
[2018-01-16] MEDS ORDERED: ALBUTEROL 2.5 MG/3 ML NEB RESP TX PRN (11:59)
[2018-01-16] MEDS ORDERED: ENOXAPARIN 30 MG/0.3 ML SYRINGE SUBCUT SCH (12:00)
[2018-01-16] MEDS ORDERED: amLODIPine 10 MG TABLET PO SCH (14:00)
[2018-01-16] MEDS: cloNIDine 0.1 MG TABLET PO SCH ×2 (14:45→20:17)
[2018-01-16] MEDS: VALSARTAN/HCTZ 160-12.5 MG TABLET PO SCH (16:41)
[2018-01-16] MEDS: CARVEDILOL 12.5 MG TABLET PO SCH (20:17)
[2018-01-17 05:04] LABS: Eosinophils # 0.1 10*3/uL (0.0-0.87); Eosinophils % 2.4 % (0.00-10.9); Hematocrit 38.6 VOL% (35.7-47.0); Lymphocytes # 1.3 10*3/uL (1.4-4.0); Lymphocytes % 29.9 % (21.3-54.2); Mean Corpuscular HGB Conc 31.1 GM/DL (32-36); Mean Corpuscular Hemoglobin 24 PG (27-34); Mean Corpuscular Volume 76.1 FL (87-102); Mean Platelet Volume 10.4 FL (9.6-12.0); Neutrophils # 1.8 10*3/uL (1.4-7.4); Neutrophils % 43.7 % (38.7-73.9); Platelet Count 281 T/CUMM (130-400); Red Blood Count 5.07 MC/CUMM (3.8-5.5); Red Cell Distribution Width 18.6 % (9.3-17.3); White Blood Count 4.2 T/CUMM (4-12)
[2018-01-17 05:30] LABS: Eosinophils 2 % (0-10); Lymphocytes 25 % (20-55); Platelet Estimate Adequate; Segmented Neutrophils 54 % (50-85); Total Cells Counted 100
[2018-01-17 05:31] LABS: Giant Platelets Few; Hypochromasia 1+; Ovalocytes Slight
[2018-01-17 05:45] LABS: Calcium 8.5 MG/DL (8.5-10.1); Osmolality,Calculated 274.8 MOS/KG (273-304); Potassium 3.5 MMOL/L (3.5-5.1); Risk Ratio 4.16; Troponin I Only 0.033 NG/ML (0.00-0.045); VLDL CHOLESTEROL 17.6 MG/DL
[2018-01-17] MEDS: CARVEDILOL 12.5 MG TABLET PO SCH ×2 (08:17→20:57)
[2018-01-17] MEDS: VALSARTAN/HCTZ 160-12.5 MG TABLET PO SCH (08:17)
[2018-01-17] MEDS: PANTOPRAZOLE 40 MG TABLET PO SCH (08:17)
[2018-01-17] MEDS: cloNIDine 0.1 MG TABLET PO SCH ×3 (08:18→20:57)
[2018-01-17] MEDS ORDERED: LEVOFLOXACIN INJ 750 MG in PREMIX 1 EACH IV ONE (11:00)
[2018-01-17] MEDS: ALBUTEROL 2.5 MG/3 ML NEB RESP TX SCH ×4 (11:04→23:34)
[2018-01-17] MEDS ORDERED: guaiFENesin 200 MG/10 ML UDCUP PO PRN (14:04)
[2018-01-17] MEDS: guaiFENesin/DM ER 600-30 MG TABLET PO SCH ×2 (14:32→20:57)
[2018-01-17] MEDS: ENOXAPARIN 40 MG/0.4 ML SYRINGE SUBCUT SCH (14:36)
[2018-01-17] MEDS ORDERED: hydrALAZINE 20 MG/1 ML VIAL IV ONE (15:52)
[2018-01-17] MEDS ORDERED: MORPHINE 4 MG/1 ML VIAL IV PRN (15:52)
[2018-01-18] MEDS: ALBUTEROL 2.5 MG/3 ML NEB RESP TX SCH ×2 (03:42→07:18)
[2018-01-18 06:07] LABS: Basophils % 0.4 % (0.0-0.8); Eosinophils # 0.1 10*3/uL (0.0-0.87); Eosinophils % 1.5 % (0.00-10.9); Hematocrit 36.4 VOL% (35.7-47.0); Hemoglobin 11.3 GM/DL (12.0-16.0); Immature Granulocytes % 0.2 %; Immature Granulocytes Absolute 0.01 #; Lymphocytes # 1.6 10*3/uL (1.4-4.0); Lymphocytes % 31.1 % (21.3-54.2); Mean Corpuscular Hemoglobin 24 PG (27-34); Mean Corpuscular Volume 76.3 FL (87-102); Mean Platelet Volume 10.8 FL (9.6-12.0); Monocytes # 0.8 10*3/uL (0.11-0.8); Monocytes % 15.9 % (1.7-12.7); Neutrophils # 2.6 10*3/uL (1.4-7.4); Neutrophils % 50.9 % (38.7-73.9); Platelet Count 290 T/CUMM (130-400); Red Blood Count 4.77 MC/CUMM (3.8-5.5); Red Cell Distribution Width 18.2 % (9.3-17.3); White Blood Count 5.2 T/CUMM (4-12)
[2018-01-18 06:34] LABS: Atypical Lymphocytes Few; Band Neutrophils 1 % (0-10); Eosinophils 2 % (0-10); Lymphocytes 33 % (20-55); Segmented Neutrophils 55 % (50-85); Total Cells Counted 100
[2018-01-18 06:35] LABS: Hypochromasia 1+; Microcytosis 1+; Platelet Estimate Normal
[2018-01-18 06:36] LABS: Calcium 8.2 MG/DL (8.5-10.1); Osmolality,Calculated 272.1 MOS/KG (273-304); Potassium 3.5 MMOL/L (3.5-5.1)
[2018-01-18] MEDS ORDERED: LEVOFLOXACIN INJ 500 MG in PREMIX 1 EACH IV SCH (09:00)
[2018-01-18] MEDS ORDERED: predniSONE 20 MG TABLET PO ONE (09:30)
[2018-01-18] MEDS: PANTOPRAZOLE 40 MG TABLET PO SCH (09:58)
[2018-01-18] MEDS: ENOXAPARIN 40 MG/0.4 ML SYRINGE SUBCUT SCH (09:58)
[2018-01-18] MEDS: cloNIDine 0.1 MG TABLET PO SCH ×3 (09:58→21:27)
[2018-01-18] MEDS: VALSARTAN/HCTZ 160-12.5 MG TABLET PO SCH (09:59)
[2018-01-18] MEDS: guaiFENesin/DM ER 600-30 MG TABLET PO SCH ×2 (10:00→21:27)
[2018-01-18] MEDS: CARVEDILOL 12.5 MG TABLET PO SCH ×2 (10:00→21:27)
[2018-01-18] MEDS ORDERED: ALBUTEROL/IPRATROPIUM 3 ML NEB RESP TX SCH (11:00)
[2018-01-18] MEDS: ALBUTEROL/IPRATROPIUM 3 ML NEB RESP TX SCH ×4 (11:24→23:30)
[2018-01-18] MEDS ORDERED: LABETALOL 20 MG/4 ML SYRINGE IV PRN (18:29)
[2018-01-19] MEDS: ALBUTEROL/IPRATROPIUM 3 ML NEB RESP TX SCH ×3 (03:21→10:22)
[2018-01-19] MEDS ORDERED: CARVEDILOL 25 MG TABLET PO SCH (08:00)
[2018-01-19] MEDS: VALSARTAN/HCTZ 160-12.5 MG TABLET PO SCH (08:36)
[2018-01-19] MEDS: guaiFENesin/DM ER 600-30 MG TABLET PO SCH (08:36)
[2018-01-19] MEDS: ENOXAPARIN 40 MG/0.4 ML SYRINGE SUBCUT SCH ×2 (08:36→08:43)
[2018-01-19] MEDS: PANTOPRAZOLE 40 MG TABLET PO SCH (08:37)
[2018-01-19] MEDS: cloNIDine 0.1 MG TABLET PO SCH (08:37)
[2018-01-19] MEDS ORDERED: LEVOFLOXACIN 500 MG TABLET PO SCH (09:00)
[2018-01-19] MEDS ORDERED: BISACODYL 5 MG TABLET PO ONE (10:00)
[2018-01-19 12:10] VITALS: BP 148/99
== END 2018-01-19 14:08 | disposition home or self-care (01) | DRG 199 ==
LOC: N.ED 07:11 → N.EDINP 10:27 → N.CC 11:10 → N.2E 01-17 16:43
PROVIDERS: ADMIT Internal Medicine; ATTEND Internal Medicine

== ENCOUNTER 2019-08-18 15:05 | Inpatient (IN) ==
[2019-08-18] MEDS ORDERED: cloNIDine 0.1 MG TABLET PO STA ×2 (15:35→17:01)
[2019-08-18] MEDS ORDERED: FUROSEMIDE 40 MG/4 ML VIAL IV STA (15:35)
[2019-08-18] MEDS ORDERED: hydrALAZINE 20 MG/1 ML VIAL IV STA ×2 (15:35→17:01)
[2019-08-18 16:00] LABS: Basophils # 0.1 10*3/uL (0.0-0.2); Basophils % 0.7 % (0.0-0.8); Eosinophils # 0.1 10*3/uL (0.0-0.87); Eosinophils % 1.3 % (0.00-10.9); Hematocrit 32.8 VOL% (35.7-47.0); Hemoglobin 10.6 GM/DL (12.0-16.0); Immature Granulocytes % 0.2 %; Immature Granulocytes Absolute 0.02 #; Lymphocytes # 2.1 10*3/uL (1.4-4.0); Lymphocytes % 25.4 % (21.3-54.2); Mean Corpuscular HGB Conc 32.3 GM/DL (32-36); Mean Corpuscular Volume 86.3 FL (87-102); Monocytes % 9.4 % (1.7-12.7); Platelet Count 267 T/CUMM (130-400); Red Cell Distribution Width 16.6 % (9.3-17.3); White Blood Count 8.4 T/CUMM (4-12)
[2019-08-18 16:17] LABS: Albumin 3.3 G/DL (3.4-5.0); Bilirubin,Total 0.5 MG/DL (0.2-1.0); Calcium 8.9 MG/DL (8.5-10.1); Osmolality,Calculated 278.5 MOS/KG (273-304); Total Protein 6.9 G/DL (6.4-8.3)
[2019-08-18 16:45] LABS: Apearance,Urine CLEAR (Clear); Bacteria,Urine Occasional /HPF (Few); Bilirubin,Urine Negative (Negative); Blood, Urine Small mg/dL (Negative); Glucose,Urine (UA) Negative (Negative); Ketones,Urine Negative (Negative); Nitrite,Urine Negative (Negative); Protein,Urine Negative; RBC,Urine 8 /HPF (0-4); Squamous Epithelial Cell,Urine Occasional /HPF (0-10); Urine Color Yellow (Yellow); Urine Urobilinogen < 2.0 EU/DL (0.2-1.0); WBC,Urine 11 /HPF (0-6)
[2019-08-18 17:04] LABS: Barbiturates Screen,Urine Negative (Negative); Benzodiazepines Screen,Urine Negative (Negative); Cannabinoid Screen,Urine Positive (Negative); Opiate Screen,Urine Negative (Negative); Phencyclidine Screen,Urine Negative (Negative)
[2019-08-18] MEDS ORDERED: niCARdipine INJ 25 MG in SODIUM CHLORIDE 0.9% 240 ML IV PRN (17:37)
[2019-08-18] MEDS ORDERED: niCARdipine 25 MG/10 ML VIAL IV ONE (17:39)
[2019-08-18] MEDS ORDERED: ALBUTEROL 2.5 MG/3 ML NEB RESP TX PRN (17:40)
[2019-08-18] MEDS ORDERED: ONDANSETRON 4 MG/2 ML VIAL IV PRN (17:40)
[2019-08-18] MEDS ORDERED: PROMETHAZINE 25 MG/1 ML VIAL IM PRN (17:40)
[2019-08-18] MEDS ORDERED: ACETAMINOPHEN 325 MG TABLET PO PRN (17:40)
[2019-08-18] MEDS ORDERED: hydrALAZINE 20 MG/1 ML VIAL IV PRN (17:46)
[2019-08-18] MEDS ORDERED: POTASSIUM CHLORIDE 20 MEQ TABLET PO STA (18:04)
[2019-08-18] MEDS ORDERED: cefTRIAXone 1,000 MG VIAL ONE (18:17)
[2019-08-18] MEDS: cefTRIAXone 1,000 MG in SYRINGE 1 EACH IV SCH (18:25)
[2019-08-18] MEDS: carvediloL 25 MG TABLET PO SCH (18:28)
[2019-08-18] MEDS: buPROPion SR 150 MG TABLET PO SCH (20:43)
[2019-08-18] MEDS ORDERED: SPIRONOLACTONE 25 MG TABLET PO SCH (21:00)
[2019-08-18] MEDS ORDERED: ENOXAPARIN 30 MG/0.3 ML SYRINGE SUBCUT SCH (21:00)
[2019-08-18] MEDS ORDERED: hydrALAZINE 25 MG TABLET PO SCH (21:00)
[2019-08-19 03:02] LABS: Basophils # 0.1 10*3/uL (0.0-0.2); Basophils % 0.6 % (0.0-0.8); Eosinophils % 0.1 % (0.00-10.9); Hematocrit 39.6 VOL% (35.7-47.0); Hemoglobin 12.9 GM/DL (12.0-16.0); Immature Granulocytes % 0.2 %; Immature Granulocytes Absolute 0.02 #; Lymphocytes % 12.1 % (21.3-54.2); Mean Corpuscular HGB Conc 32.6 GM/DL (32-36); Mean Corpuscular Volume 84.4 FL (87-102); Mean Platelet Volume 10.7 FL (9.6-12.0); Monocytes % 7.4 % (1.7-12.7); Neutrophils % 79.6 % (38.7-73.9); Platelet Count 323 T/CUMM (130-400); Red Blood Count 4.69 MC/CUMM (3.8-5.5); Red Cell Distribution Width 16.6 % (9.3-17.3); White Blood Count 8.1 T/CUMM (4-12)
[2019-08-19 03:21] LABS: Troponin I < 0.015 NG/ML (0.00-0.045)
[2019-08-19 03:28] LABS: Calcium 8.8 MG/DL (8.5-10.1); Osmolality,Calculated 274.8 MOS/KG (273-304); Risk Ratio 3.62; Thyroid Stimulating Hormone 0.983 uIU/ml (0.358-3.74); VLDL CHOLESTEROL 11.4 MG/DL
[2019-08-19 03:30] LABS: Folate 7.6 NG/ML (5.4-24.0)
[2019-08-19 03:38] LABS: % Iron Saturation 8.2 % (18-50)
[2019-08-19] MEDS: POTASSIUM CHLORIDE 20 MEQ TABLET PO PRN ×2 (04:17→06:32)
[2019-08-19] MEDS ORDERED: POTASSIUM CHLORIDE 20 MEQ TABLET PO ONE (07:07)
[2019-08-19] MEDS ORDERED: CYANOCOBALAMIN 1000 MCG/1 ML VIAL IM ONE (07:12)
[2019-08-19] MEDS ORDERED: POTASSIUM CHLORIDE 20 MEQ TABLET PO PRN (07:14)
[2019-08-19] MEDS ORDERED: MAGNESIUM SULF RIDER 4 GM in PREMIX 1 EACH IV PRN (07:16)
[2019-08-19] MEDS ORDERED: MAGNESIUM SULF RIDER 2 GM in PREMIX 1 EACH IV PRN (07:16)
[2019-08-19] MEDS: buPROPion SR 150 MG TABLET PO SCH ×2 (08:31→20:34)
[2019-08-19] MEDS: carvediloL 25 MG TABLET PO SCH ×2 (08:32→17:05)
[2019-08-19] MEDS: SPIRONOLACTONE 25 MG TABLET PO SCH ×2 (08:33→20:34)
[2019-08-19] MEDS: PANTOPRAZOLE 40 MG TABLET PO SCH (08:33)
[2019-08-19] MEDS: NICOTINE 21 MG/24 HR PATCH TRANSDERM SCH (08:35)
[2019-08-19] MEDS ORDERED: MINOXIDIL 2.5 MG TABLET PO SCH (09:00)
[2019-08-19] MEDS: cefTRIAXone 1,000 MG in SYRINGE 1 EACH IV SCH (17:35)
[2019-08-19] MEDS ORDERED: ENOXAPARIN 40 MG/0.4 ML SYRINGE SUBCUT SCH (21:00)
[2019-08-19] MEDS ORDERED: FUROSEMIDE 20 MG/2 ML VIAL IV SCH (22:00)
[2019-08-20 05:16] LABS: Basophils % 0.5 % (0.0-0.8); Eosinophils # 0.1 10*3/uL (0.0-0.87); Eosinophils % 0.6 % (0.00-10.9); Hematocrit 42.1 VOL% (35.7-47.0); Hemoglobin 13.6 GM/DL (12.0-16.0); Immature Granulocytes % 0.2 %; Immature Granulocytes Absolute 0.02 #; Lymphocytes # 1.6 10*3/uL (1.4-4.0); Lymphocytes % 19.2 % (21.3-54.2); Mean Corpuscular HGB Conc 32.3 GM/DL (32-36); Mean Corpuscular Volume 84.7 FL (87-102); Mean Platelet Volume 11.1 FL (9.6-12.0); Monocytes % 10.8 % (1.7-12.7); Neutrophils % 68.7 % (38.7-73.9); Platelet Count 378 T/CUMM (130-400); Red Blood Count 4.97 MC/CUMM (3.8-5.5); Red Cell Distribution Width 16.8 % (9.3-17.3); White Blood Count 8.1 T/CUMM (4-12)
[2019-08-20 06:00] LABS: Calcium 8.9 MG/DL (8.5-10.1); Osmolality,Calculated 272.1 MOS/KG (273-304)
[2019-08-20] MEDS: PANTOPRAZOLE 40 MG TABLET PO SCH (10:57)
[2019-08-20] MEDS: buPROPion SR 150 MG TABLET PO SCH ×2 (10:57→20:42)
[2019-08-20] MEDS: MINOXIDIL 2.5 MG TABLET PO SCH (10:57)
[2019-08-20] MEDS: SPIRONOLACTONE 25 MG TABLET PO SCH (10:57)
[2019-08-20] MEDS: NICOTINE 21 MG/24 HR PATCH TRANSDERM SCH (10:57)
[2019-08-20] MEDS: carvediloL 25 MG TABLET PO SCH ×2 (10:57→18:39)
[2019-08-20] MEDS: cefTRIAXone 1,000 MG in SYRINGE 1 EACH IV SCH (18:38)
[2019-08-21 06:04] LABS: Basophils # 0.1 10*3/uL (0.0-0.2); Basophils % 0.7 % (0.0-0.8); Eosinophils # 0.1 10*3/uL (0.0-0.87); Eosinophils % 1.3 % (0.00-10.9); Hematocrit 39.2 VOL% (35.7-47.0); Hemoglobin 12.8 GM/DL (12.0-16.0); Immature Granulocytes % 0.4 %; Immature Granulocytes Absolute 0.03 #; Lymphocytes # 1.7 10*3/uL (1.4-4.0); Lymphocytes % 25.7 % (21.3-54.2); Mean Corpuscular HGB Conc 32.7 GM/DL (32-36); Mean Corpuscular Volume 85.4 FL (87-102); Mean Platelet Volume 10.7 FL (9.6-12.0); Monocytes % 13.8 % (1.7-12.7); Neutrophils % 58.1 % (38.7-73.9); Platelet Count 364 T/CUMM (130-400); Red Blood Count 4.59 MC/CUMM (3.8-5.5); Red Cell Distribution Width 16.8 % (9.3-17.3); White Blood Count 6.7 T/CUMM (4-12)
[2019-08-21 06:51] LABS: Calcium 8.7 MG/DL (8.5-10.1)
[2019-08-21 07:46] VITALS: BP 122/72
[2019-08-21] MEDS: buPROPion SR 150 MG TABLET PO SCH (08:47)
[2019-08-21] MEDS: PANTOPRAZOLE 40 MG TABLET PO SCH (08:47)
[2019-08-21] MEDS: carvediloL 25 MG TABLET PO SCH (08:47)
[2019-08-21] MEDS: MINOXIDIL 2.5 MG TABLET PO SCH (08:48)
[2019-08-21] MEDS: NICOTINE 21 MG/24 HR PATCH TRANSDERM SCH (08:48)
== END 2019-08-21 10:17 | disposition home or self-care (01) | DRG 194 ==
LOC: N.ED 15:05 → SUATTDRO 17:40 → N.EDINP 17:40 → N.CC 18:09 → N.4E 08-19 11:24
PROVIDERS: ADMIT Hospitalist; ATTEND Hospitalist

== ENCOUNTER 2022-07-19 13:00 | Inpatient (IN) ==
[2022-07-15 12:22] LABS: Basophils # 0.1 10*3/uL (0.0-0.2); Basophils % 0.7 % (0.0-0.8); Eosinophils # 0.1 10*3/uL (0.0-0.87); Eosinophils % 1.7 % (0.00-10.9); Hematocrit 27.5 VOL% (35.7-47.0); Hemoglobin 8.6 GM/DL (12.0-16.0); Immature Granulocytes % 0.1 %; Immature Granulocytes Absolute 0.01 #; Lymphocytes # 1.8 10*3/uL (1.4-4.0); Lymphocytes % 25.4 % (21.3-54.2); Mean Corpuscular HGB Conc 31.3 GM/DL (32-36); Mean Corpuscular Volume 83.6 FL (87-102); Mean Platelet Volume 9.9 FL (9.6-12.0); Monocytes # 0.7 10*3/uL (0.11-0.8); Monocytes % 9.4 % (1.7-12.7); Neutrophils % 62.7 % (38.7-73.9); Platelet Count 312 T/CUMM (130-400); Red Blood Count 3.29 MC/CUMM (3.8-5.5)
[2022-07-15 12:28] LABS: Bilirubin,Urine Negative (Negative); Blood, Urine Large mg/dL (Negative); Glucose,Urine (UA) Negative (Negative); Ketones,Urine Negative (Negative); Nitrite,Urine Negative (Negative); Protein,Urine 30 mg/dL (Negative); RBC,Urine 1 /HPF (0-4); Squamous Epithelial Cell,Urine Occasional /HPF (0-10); Urine Appearance CLEAR (Clear); Urine Color Yellow (Yellow); Urine Specific Gravity 1.014 (1.001-1.035); Urine Urobilinogen < 2.0 eU/dL (<2.0)
[2022-07-15 12:44] LABS: Risk Ratio 2.97; VLDL Cholesterol 11.4 MG/DL
[2022-07-15 12:57] LABS: Albumin 3.6 G/DL (3.4-5.0); Bilirubin,Total 0.7 MG/DL (0.20-1.00); Calcium 8.7 MG/DL (8.5-10.1); Osmolality,Calculated 280.5 MOS/KG (273-304); Potassium 3.6 MMOL/L (3.5-5.1); Total Protein 6.7 G/DL (6.4-8.2)
[2022-07-15 13:28] LABS: HIV Antigen/Antibody Result Nonreactive (Nonreactive)
[2022-08-02] MEDS ORDERED: AMPICILLIN/SULBACTAM 3,000 MG in SODIUM CHLORIDE 0.9% 100 ML IV ONE (06:00)
[2022-08-02] MEDS ORDERED: LACTATED RINGERS 1,000 ML IV SCH ×2 (06:00→12:30)
[2022-08-02] MEDS ORDERED: FAMOTIDINE 20 MG TABLET PO ONE (12:25)
[2022-08-02] MEDS ORDERED: DIAZEPAM 5 MG TABLET PO ONE (12:25)
[2022-08-02] MEDS ORDERED: ACETAMINOPHEN 500 MG TABLET PO ONE (12:25)
[2022-08-02] MEDS ORDERED: GABAPENTIN 400 MG CAPSULE PO ONE (12:25)
[2022-08-02] MEDS ORDERED: SEVOFLURANE 1 UNIT/15 MINUTE INH ONE ×3 (13:29→15:07)
[2022-08-02] MEDS ORDERED: LIDOCAINE 2% 5 ML VIAL ONE (13:29)
[2022-08-02] MEDS ORDERED: propofoL 200 MG/20 ML VIAL IV ONE (13:29)
[2022-08-02] MEDS ORDERED: ACETAMINOPHEN INJ 1,000 MG/100 ML VIAL IV ONE (13:29)
[2022-08-02] MEDS ORDERED: MIDAZOLAM 2 MG/2 ML VIAL ONE (13:29)
[2022-08-02] MEDS ORDERED: KETOROLAC 30 MG/1 ML VIAL ONE (13:29)
[2022-08-02] MEDS ORDERED: ONDANSETRON 4 MG/2 ML VIAL ONE (13:29)
[2022-08-02] MEDS ORDERED: ROCURONIUM 50 MG/5 ML VIAL IV ONE (13:29)
[2022-08-02] MEDS ORDERED: DEXAMETHASONE 4 MG/1 ML VIAL ONE ×2 (13:29→15:12)
[2022-08-02] MEDS ORDERED: fentaNYL 100 MCG/2 ML VIAL ONE (13:30)
[2022-08-02] MEDS ORDERED: ePHEDrine 50 MG/ML VIAL ONE (13:58)
[2022-08-02] MEDS ORDERED: LACTATED RINGERS 1,000 ML IV ONE (14:30)
[2022-08-02] MEDS ORDERED: GLYCOPYRROLATE 0.4 MG/2 ML VIAL ONE (14:31)
[2022-08-02] MEDS ORDERED: NEOSTIGMINE 10 MG/10 ML VIAL ONE (14:33)
[2022-08-02] MEDS ORDERED: ACETAMINOPHEN 325 MG TABLET PO PRN (15:05)
[2022-08-02] MEDS ORDERED: MAGNESIUM HYDROXIDE SUSP 30 ML UDCUP PO PRN (15:05)
[2022-08-02] MEDS ORDERED: BENZOCAINE/MENTHOL LOZENGE 18/BOX PO PRN (15:05)
[2022-08-02] MEDS ORDERED: HYDROmorphone 1 MG/1 ML SYRINGE IV PRN ×2 (15:05→15:45)
[2022-08-02] MEDS ORDERED: IBUPROFEN 800 MG TABLET PO PRN (15:05)
[2022-08-02] MEDS ORDERED: ONDANSETRON 4 MG/2 ML VIAL IV PRN ×2 (15:05→15:45)
[2022-08-02] MEDS ORDERED: BISACODYL 10 MG SUPP RECTAL PRN (15:05)
[2022-08-02] MEDS ORDERED: ROPIVACAINE 0.5% 30 ML VIAL ONE (15:12)
[2022-08-02] MEDS ORDERED: LIDOCAINE 1% 5 ML VIAL ONE (15:12)
[2022-08-02 15:25] LABS: Bilirubin,Urine Negative (Negative); Blood, Urine Small mg/dL (Negative); Glucose,Urine (UA) Negative (Negative); Ketones,Urine Negative (Negative); Nitrite,Urine Negative (Negative); Protein,Urine Negative (Negative); RBC,Urine 2 /HPF (0-4); Squamous Epithelial Cell,Urine Occasional /HPF (0-10); Urine Appearance CLEAR (Clear); Urine Color Straw (Yellow); Urine Specific Gravity 1.012 (1.001-1.035); Urine Urobilinogen < 2.0 eU/dL (<2.0)
[2022-08-02] MEDS ORDERED: INFLUENZA VIRUS VACCINE 0.5 ML SYRINGE IM ONE (17:38)
[2022-08-02] MEDS: LACTATED RINGERS 1,000 ML IV SCH ×2 (17:46→21:33)
[2022-08-02] MEDS ORDERED: cloNIDine 0.1 MG TABLET PO SCH (21:00)
[2022-08-02] MEDS: minoxidiL 2.5 MG TABLET PO SCH (22:46)
[2022-08-02] MEDS: carvediloL 6.25 MG TABLET PO SCH (22:47)
[2022-08-02 23:40] LABS: Basophils % 0.1 % (0.0-0.8); Hematocrit 30.8 VOL% (35.7-47.0); Hemoglobin 9.6 GM/DL (12.0-16.0); Immature Granulocytes % 0.7 %; Immature Granulocytes Absolute 0.12 #; Lymphocytes # 0.6 10*3/uL (1.4-4.0); Lymphocytes % 3.7 % (21.3-54.2); Mean Corpuscular HGB Conc 31.2 GM/DL (32-36); Mean Corpuscular Volume 82.8 FL (87-102); Mean Platelet Volume 9.4 FL (9.6-12.0); Monocytes # 0.4 10*3/uL (0.11-0.8); Monocytes % 2.3 % (1.7-12.7); Neutrophils % 93.2 % (38.7-73.9); Platelet Count 323 T/CUMM (130-400); Red Blood Count 3.72 MC/CUMM (3.8-5.5); Red Cell Distribution Width 17.9 % (9.3-17.3); White Blood Count 17.2 T/CUMM (4-12)
[2022-08-02] MEDS ORDERED: KETOROLAC 30 MG/1 ML VIAL IV PRN (23:48)
[2022-08-03 00:40] LABS: Lymphocytes 2 % (20-55); Platelet Estimate Adequate; Total Cells Counted 100
[2022-08-03] MEDS: SPIRONOLACTONE 50 MG TABLET PO SCH ×2 (03:39→10:15)
[2022-08-03 04:55] LABS: Basophils % 0.1 % (0.0-0.8); Hematocrit 29.9 VOL% (35.7-47.0); Hemoglobin 9.3 GM/DL (12.0-16.0); Immature Granulocytes % 0.6 %; Lymphocytes # 0.8 10*3/uL (1.4-4.0); Lymphocytes % 4.5 % (21.3-54.2); Mean Corpuscular HGB Conc 31.1 GM/DL (32-36); Mean Corpuscular Volume 83.5 FL (87-102); Mean Platelet Volume 10.4 FL (9.6-12.0); Monocytes # 0.8 10*3/uL (0.11-0.8); Monocytes % 4.1 % (1.7-12.7); Neutrophils % 90.7 % (38.7-73.9); Platelet Count 342 T/CUMM (130-400); Red Blood Count 3.58 MC/CUMM (3.8-5.5); Red Cell Distribution Width 17.7 % (9.3-17.3); White Blood Count 18.1 T/CUMM (4-12)
[2022-08-03 05:18] LABS: Hypochromia Slight; Lymphocytes 5 % (20-55); Microcytosis Slight; Platelet Estimate Adequate; Total Cells Counted 100
[2022-08-03] MEDS ORDERED: cloNIDine 0.1 MG TABLET PO PRN (06:42)
[2022-08-03] MEDS ORDERED: amLODIPine 10 MG TABLET PO SCH (09:00)
[2022-08-03] MEDS: LISINOPRIL/HCTZ 20-25 MG TABLET PO SCH (10:14)
[2022-08-03] MEDS: METOCLOPRAMIDE 10 MG TABLET PO SCH ×3 (10:14→23:38)
[2022-08-03] MEDS: carvediloL 6.25 MG TABLET PO SCH ×2 (10:14→17:13)
[2022-08-03] MEDS: ASPIRIN EC 81 MG TABLET PO SCH (10:14)
[2022-08-03] MEDS: minoxidiL 2.5 MG TABLET PO SCH (10:15)
[2022-08-03] MEDS: POLYETHYLENE GLYCOL POWDER 17 GM PACK PO PRN (14:39)
[2022-08-03] MEDS ORDERED: SIMETHICONE CHEW 80 MG TABLET PO PRN (15:13)
[2022-08-03] MEDS: DOCUSATE SODIUM 100 MG CAPSULE PO PRN (21:16)
[2022-08-04] MEDS: minoxidiL 2.5 MG TABLET PO SCH ×2 (00:19→09:10)
[2022-08-04] MEDS: SPIRONOLACTONE 50 MG TABLET PO SCH ×2 (00:19→09:11)
[2022-08-04] MEDS: ASPIRIN EC 81 MG TABLET PO SCH (09:09)
[2022-08-04] MEDS: METOCLOPRAMIDE 10 MG TABLET PO SCH (09:09)
[2022-08-04] MEDS: LISINOPRIL/HCTZ 20-25 MG TABLET PO SCH (09:10)
[2022-08-04] MEDS: carvediloL 6.25 MG TABLET PO SCH (09:11)
[2022-08-04] MEDS: DOCUSATE SODIUM 100 MG CAPSULE PO PRN (09:11)
[2022-08-04] MEDS: POLYETHYLENE GLYCOL POWDER 17 GM PACK PO PRN (09:13)
[2022-08-04 11:47] VITALS: BP 125/65
== END 2022-08-04 13:35 | disposition home or self-care (01) | DRG 519 ==
LOC: N.SDSINP 08-02 10:36 → N.OB 08-02 17:08
PROVIDERS: ADMIT Obstetrics & Gynecology; ATTEND Obstetrics & Gynecology